=== PATIENT | female | born 1930 | race Caucasian/White ===

== ENCOUNTER 2018-08-09 19:50 | Emergency (ER) | END 2018-08-09 22:22 | disposition home or self-care (01) | DX: I48.91 Unspecified atrial fibrillation (principal); R60.9 Edema, unspecified; N28.9 Disorder of kidney and ureter, unspecified; I10 Essential (primary) hypertension; F17.200 Nicotine dependence, unspecified, uncomplicated; W19.XXXA Unspecified fall, initial encounter; Y93.89 Activity, other specified; Y92.89 Other specified places as the place of occurrence of the external cause; Y99.8 Other external cause status ==

== ENCOUNTER 2018-08-26 14:29 | Inpatient (IN) | payer MEDICARE, OTHER ==
[~2018-08-26] VITALS: Ht 172.7 cm; Wt 74.8 kg
[2018-08-26] MEDS ORDERED: HYDROMORPHONE 1 MG/1 ML DISP.SYRIN ONE ×2 (14:57→16:18)
[2018-08-26] MEDS ORDERED: ONDANSETRON 4 MG/2 ML VIAL ONE (14:57)
[2018-08-26] MEDS ORDERED: HYDROMORPHONE 1 MG/1 ML DISP.SYRIN IV ONE ×2 (15:00→16:15)
[2018-08-26] MEDS ORDERED: ONDANSETRON 4 MG/2 ML VIAL IV ONE (15:00)
[2018-08-26] MEDS ORDERED: CRANBERRY (15:01)
[2018-08-26] MEDS ORDERED: DONE5TAB7 PO (15:01)
[2018-08-26] MEDS ORDERED: ACET-2605 PO (15:01)
[2018-08-26] MEDS ORDERED: VITAMIN D3 PO (15:01)
[2018-08-26] MEDS ORDERED: GABA-532 PO (15:01)
[2018-08-26] MEDS ORDERED: AMLO5TAB9 PO (15:01)
[2018-08-26] MEDS ORDERED: VITAMIN B-12 PO (15:01)
[2018-08-26 15:32] LABS: BASOPHILS # (AUTO) 0.1 K/uL (0.0-8.0); BASOPHILS % (AUTO) 0.7 % (0.0-2.0); EOSINOPHILS # (AUTO) 0.1 K/uL (0.0-0.7); EOSINOPHILS % (AUTO) 0.8 % (0.0-7.0); HEMATOCRIT 45.3 % (31.2-41.9); HEMOGLOBIN 15.1 g/dL (10.9-14.3); LYMPHOCYTES # (AUTO) 1.5 K/uL (20.0-40.0); LYMPHOCYTES % (AUTO) 12.9 % (20.5-51.5); MEAN CORPUSCULAR HEMOGLOBIN 30.9 uug (24.7-32.8); MEAN CORPUSCULAR HGB CONC 33 g/dL (32.3-35.6); MEAN CORPUSCULAR VOLUME 92.8 fL (75.5-95.3); MONOCYTES # (AUTO) 0.7 K/uL (2.0-10.0); NEUTROPHILS # (AUTO) 9.6 K/uL (1.8-8.9); NEUTROPHILS % (AUTO) 79.6 % (38.5-71.5); PLATELET COUNT (AUTO) 444 K/uL (179-408); RED BLOOD CELL COUNT(AUTO) 4.89 MIL/uL (3.63-4.92)
[2018-08-26 15:41] LABS: CARBON DIOXIDE 25 mmol/L (21-32); CHLORIDE 103 mmol/L (98-107); CREATININE 1.7 mg/dL (0.6-1.3); GLUCOSE 125 mg/dL (74-106); UREA NITROGEN, BLOOD 23 mg/dL (7-18)
[2018-08-26] MEDS ORDERED: IV NORMAL SALINE 500 ML BAG IV ONE (16:15)
[2018-08-26 16:55] VITALS: BP 154/67
[2018-08-26] MEDS ORDERED: APIX2.5T PO (18:29)
[2018-08-26] MEDS ORDERED: ZOLPIDEM 5 MG TABLET PO PRN (18:45)
[2018-08-26] MEDS ORDERED: ACETAMINOPHEN 325 MG TABLET PO PRN (18:45)
[2018-08-26] MEDS ORDERED: Z GUARD REMEDY PASTE 57 GM TUBE TOP PRN (18:45)
[2018-08-26] MEDS ORDERED: ONDANSETRON 4 MG/2 ML VIAL IV PRN (18:45)
[2018-08-26] MEDS ORDERED: MAGNESIUM HYDROXIDE 30 ML LIQUID UDC PO PRN (18:45)
[2018-08-26] MEDS: IV NS 1000 ML 1,000 ML IV PRN (19:56)
[2018-08-26] MEDS: HYDROCODONE/APAP 5-325MG TABLET PO PRN (19:57)
[2018-08-26 20:01] VITALS: BP 128/56
[2018-08-26 23:44] LABS: *BILIRUBIN,URIN NEGATIVE (NEGATIVE); *BLOOD, URINE 1+ (NEGATIVE); *CLARITY,URINE CLOUDY (CLEAR); *COLOR,URINE YELLOW (YELLOW); *KETONES,URINE TRACE (NEGATIVE); *UROBILINOGEN,URINE 0.2 E.U./dl (NORMAL); LEUKOCYTE ESTERASE ,URINE 1+ (NEGATIVE); NITRITE, URINE POSITIVE (NEGATIVE); PH,URINE 5.5 (5.0-8.0); UGLUCOSE NEGATIVE (NEGATIVE)
[2018-08-26 23:56] LABS: BACTERIA,URINE MP /HPF (NONE SEEN); WBC,URINE 20-50 /HPF (0-3)
[2018-08-26 23:57] LABS: RED BLOOD CELL CASTS,URINE 0-3 /LPF (NONE SEEN); SQUAMOUS EPITHELIAL CELL,UR FEW /HPF (NONE SEEN); TRANSITIONAL EPI CELLS,URINE MODERATE /LPF (NONE SEEN)
[2018-08-27 05:23] VITALS: BP 150/76
[2018-08-27 05:49] LABS: BASOPHILS # (AUTO) 0.1 K/uL (0.0-8.0); BASOPHILS % (AUTO) 0.5 % (0.0-2.0); EOSINOPHILS % (AUTO) 0.1 % (0.0-7.0); HEMATOCRIT 39.2 % (31.2-41.9); HEMOGLOBIN 13.6 g/dL (10.9-14.3); LYMPHOCYTES # (AUTO) 1.6 K/uL (20.0-40.0); LYMPHOCYTES % (AUTO) 13.6 % (20.5-51.5); MEAN CORPUSCULAR HGB CONC 35 g/dL (32.3-35.6); MEAN CORPUSCULAR VOLUME 92.5 fL (75.5-95.3); MONOCYTES # (AUTO) 1.1 K/uL (2.0-10.0); MONOCYTES % (AUTO) 9.5 % (0.0-11.0); NEUTROPHILS # (AUTO) 8.9 K/uL (1.8-8.9); NEUTROPHILS % (AUTO) 76.3 % (38.5-71.5); PLATELET COUNT (AUTO) 335 K/uL (179-408); RED BLOOD CELL COUNT(AUTO) 4.24 MIL/uL (3.63-4.92); WHITE BLOOD COUNT (AUTO) 11.7 K/uL (3.8-11.8)
[2018-08-27 06:04] LABS: CARBON DIOXIDE 21 mmol/L (21-32); CHLORIDE 108 mmol/L (98-107); CHOLESTEROL 139 mg/dL (<200); CREATININE 1.5 mg/dL (0.6-1.3); GLUCOSE 114 mg/dL (74-106); HDL CHOLESTEROL 62 mg/dL (40-60); PHOSPHOROUS 4.3 mg/dL (2.5-4.9); POTASSIUM 4.9 mmol/L (3.5-5.1); TRIGLYCERIDES 52 MG/DL (30-150); UREA NITROGEN, BLOOD 21 mg/dL (7-18)
[2018-08-27] MEDS ORDERED: AMLODIPINE 5 MG TABLET PO SCH (09:00)
[2018-08-27] MEDS: GABAPENTIN 100 MG CAPSULE PO SCH ×3 (09:19→17:18)
[2018-08-27] MEDS: DONEPEZIL 5 MG TABLET PO SCH (09:19)
[2018-08-27] MEDS: CEFTRIAXONE 1 G in IV DEXTROSE 5% 50 ML IV SCH (10:37)
[2018-08-27 11:13] VITALS: BP 153/68
[2018-08-27] MEDS: HYDROCODONE/APAP 5-325MG TABLET PO PRN ×2 (13:51→18:38)
[2018-08-27] MEDS: IV NS 1000 ML 1,000 ML IV PRN (13:53)
[2018-08-27] MEDS ORDERED: MECL-102 PO (14:53)
[2018-08-27] MEDS ORDERED: VERA240C2 PO (14:53)
[2018-08-27 15:24] VITALS: BP 105/60
[2018-08-27] MEDS ORDERED: VERA180T11 PO (15:37)
[2018-08-27] MEDS: APIXABAN 2.5 MG PO SCH (17:18)
[2018-08-27 20:31] VITALS: BP 155/70
[2018-08-28 00:54] LABS: *BILIRUBIN,URIN NEGATIVE (NEGATIVE); *BLOOD, URINE Trace-intact (NEGATIVE); *CLARITY,URINE SLIGHTLY CLOUDY (CLEAR); *COLOR,URINE YELLOW (YELLOW); *KETONES,URINE NEGATIVE (NEGATIVE); *UROBILINOGEN,URINE 0.2 E.U./dl (NORMAL); LEUKOCYTE ESTERASE ,URINE 1+ (NEGATIVE); NITRITE, URINE POSITIVE (NEGATIVE); PH,URINE 5.5 (5.0-8.0); UGLUCOSE NEGATIVE (NEGATIVE)
[2018-08-28 01:14] LABS: BACTERIA,URINE MANY /HPF (NONE SEEN); SQUAMOUS EPITHELIAL CELL,UR MODERATE /HPF (NONE SEEN); WBC,URINE 20-50 /HPF (0-3)
[2018-08-28 01:15] LABS: MUCUS,URINE FEW /LPF (0-FEW); RENAL EPITHELIAL CELLS,URINE FEW /LPF (NONE SEEN); TRANSITIONAL EPI CELLS,URINE FEW /LPF (NONE SEEN)
[2018-08-28 01:16] LABS: *CREATININE,URINE 172.9 mg/dL (30-125); *URINE TOTAL PROTEIN RANDOM 45.3 mg/dL (<150/24HR)
[2018-08-28] MEDS: IV NS 1000 ML 1,000 ML IV PRN (01:32)
[2018-08-28 05:53] VITALS: BP 136/69
[2018-08-28 06:38] LABS: BASOPHILS # (AUTO) 0.1 K/uL (0.0-8.0); BASOPHILS % (AUTO) 0.4 % (0.0-2.0); EOSINOPHILS # (AUTO) 0.1 K/uL (0.0-0.7); EOSINOPHILS % (AUTO) 0.6 % (0.0-7.0); HEMATOCRIT 37.6 % (31.2-41.9); HEMOGLOBIN 12.9 g/dL (10.9-14.3); LYMPHOCYTES # (AUTO) 1.5 K/uL (20.0-40.0); LYMPHOCYTES % (AUTO) 11.7 % (20.5-51.5); MEAN CORPUSCULAR HGB CONC 34 g/dL (32.3-35.6); MEAN CORPUSCULAR VOLUME 93.1 fL (75.5-95.3); MONOCYTES # (AUTO) 1.1 K/uL (2.0-10.0); MONOCYTES % (AUTO) 8.3 % (0.0-11.0); NEUTROPHILS # (AUTO) 10.2 K/uL (1.8-8.9); PLATELET COUNT (AUTO) 367 K/uL (179-408); RED BLOOD CELL COUNT(AUTO) 4.04 MIL/uL (3.63-4.92); WHITE BLOOD COUNT (AUTO) 12.9 K/uL (3.8-11.8)
[2018-08-28 06:44] LABS: CARBON DIOXIDE 26 mmol/L (21-32); CHLORIDE 106 mmol/L (98-107); CREATININE 1.4 mg/dL (0.6-1.3); GLUCOSE 105 mg/dL (74-106); MAGNESIUM 1.7 mg/dL (1.8-2.4); PHOSPHOROUS 2.3 mg/dL (2.5-4.9); POTASSIUM 4.2 mmol/L (3.5-5.1); UREA NITROGEN, BLOOD 15 mg/dL (7-18)
[2018-08-28] MEDS: GABAPENTIN 100 MG CAPSULE PO SCH ×4 (08:52→16:00)
[2018-08-28] MEDS: DONEPEZIL 5 MG TABLET PO SCH (08:52)
[2018-08-28] MEDS: APIXABAN 2.5 MG PO SCH ×2 (08:54→16:01)
[2018-08-28] MEDS: HYDROCODONE/APAP 5-325MG TABLET PO PRN ×2 (08:55→15:59)
[2018-08-28] MEDS: VERAPAMIL SR 180 MG TABLET.SA PO SCH (08:55)
[2018-08-28] MEDS ORDERED: NEUTRA PHOS PACKET PO ONE (11:00)
[2018-08-28 11:03] VITALS: BP 150/64
[2018-08-28] MEDS: CEFTRIAXONE 1 G in IV DEXTROSE 5% 50 ML IV SCH (11:51)
[2018-08-28] MEDS: MAGNESIUM SULFATE/D5W 100 ML IV SCH ×2 (13:15→14:24)
[2018-08-28] MEDS ORDERED: PIPERACILLIN/TAZOBACTAM/D5W 3.375 G in PREMIXED 1 EACH IV SCH (14:00)
[2018-08-28] MEDS: PIPERACILLIN/TAZOBACTAM/D5W 3.375 G in PREMIXED 1 EACH IV SCH ×2 (15:59→21:13)
[2018-08-28 20:03] VITALS: BP 135/84
[2018-08-29] MEDS: MECLIZINE HCL 25 MG TABLET PO PRN (03:52)
[2018-08-29] MEDS: PIPERACILLIN/TAZOBACTAM/D5W 3.375 G in PREMIXED 1 EACH IV SCH ×3 (05:01→21:03)
[2018-08-29 05:13] VITALS: BP 111/75
[2018-08-29] MEDS: DONEPEZIL 5 MG TABLET PO SCH (08:51)
[2018-08-29] MEDS: HYDROCODONE/APAP 5-325MG TABLET PO PRN ×2 (08:52→17:10)
[2018-08-29] MEDS: GABAPENTIN 100 MG CAPSULE PO SCH ×3 (08:52→17:10)
[2018-08-29] MEDS: VERAPAMIL SR 180 MG TABLET.SA PO SCH (08:52)
[2018-08-29] MEDS: APIXABAN 2.5 MG PO SCH ×3 (08:53→17:11)
[2018-08-29 11:23] VITALS: BP 144/43
[2018-08-29 11:27] LABS: BASOPHILS # (AUTO) 0.1 K/uL (0.0-8.0); BASOPHILS % (AUTO) 0.6 % (0.0-2.0); EOSINOPHILS # (AUTO) 0.1 K/uL (0.0-0.7); EOSINOPHILS % (AUTO) 0.7 % (0.0-7.0); LYMPHOCYTES # (AUTO) 1.4 K/uL (20.0-40.0); MEAN CORPUSCULAR HEMOGLOBIN 31.7 uug (24.7-32.8); MEAN CORPUSCULAR HGB CONC 35 g/dL (32.3-35.6); MEAN CORPUSCULAR VOLUME 91.3 fL (75.5-95.3); MONOCYTES # (AUTO) 1.2 K/uL (2.0-10.0); MONOCYTES % (AUTO) 7.9 % (0.0-11.0); NEUTROPHILS # (AUTO) 12.9 K/uL (1.8-8.9); NEUTROPHILS % (AUTO) 81.8 % (38.5-71.5); PLATELET COUNT (AUTO) 444 K/uL (179-408); RED BLOOD CELL COUNT(AUTO) 4.57 MIL/uL (3.63-4.92); WHITE BLOOD COUNT (AUTO) 15.7 K/uL (3.8-11.8)
[2018-08-29 11:37] LABS: HEMATOCRIT 41.7 % (31.2-41.9); HEMOGLOBIN 14.5 g/dL (10.9-14.3)
[2018-08-29 11:38] LABS: ALANINE AMINOTRANSFERASE 112 U/L (14-59); ALKALINE PHOSPHATASE 92 U/L (50-136); ASPARTATE AMINOTRANSFERASE 32 U/L (15-37); BILIRUBIN,TOTAL 0.9 mg/dL (0.2-1.0); CARBON DIOXIDE 26 mmol/L (21-32); CHLORIDE 104 mmol/L (98-107); CREATININE 1.5 mg/dL (0.6-1.3); GLUCOSE 106 mg/dL (74-106); MAGNESIUM 2.1 mg/dL (1.8-2.4); PHOSPHOROUS 2.8 mg/dL (2.5-4.9); POTASSIUM 3.9 mmol/L (3.5-5.1); TOTAL PROTEIN, SERUM 6.9 g/dL (6.4-8.2); UREA NITROGEN, BLOOD 17 mg/dL (7-18)
[2018-08-29] MEDS ORDERED: CIPROFLOXACIN-HC OTIC DROP 10 ML BOTTLE LEFT EAR SCH (12:45)
[2018-08-29] MEDS ORDERED: NEOMY/POLYMYX B/HC OTIC SUSP 10 ML BOTTLE OT SCH (14:21)
[2018-08-29 14:54] VITALS: BP 121/67
[2018-08-29] MEDS: NEOMY/POLYMYX B/HC OTIC SUSP 10 ML BOTTLE LEFT EAR SCH ×2 (17:09→20:37)
[2018-08-29 20:35] VITALS: BP 123/64
[2018-08-30 00:05] VITALS: BP 125/62
[2018-08-30] MEDS: HYDROCODONE/APAP 5-325MG TABLET PO PRN ×4 (02:28→22:23)
[2018-08-30] MEDS: PIPERACILLIN/TAZOBACTAM/D5W 3.375 G in PREMIXED 1 EACH IV SCH (05:09)
[2018-08-30 05:55] VITALS: BP 133/66
[2018-08-30 05:56] VITALS: BP 133/66
[2018-08-30 07:51] LABS: BASOPHILS # (AUTO) 0.1 K/uL (0.0-8.0); BASOPHILS % (AUTO) 1.4 % (0.0-2.0); EOSINOPHILS # (AUTO) 0.3 K/uL (0.0-0.7); EOSINOPHILS % (AUTO) 3.2 % (0.0-7.0); HEMATOCRIT 39.4 % (31.2-41.9); HEMOGLOBIN 13.6 g/dL (10.9-14.3); LYMPHOCYTES # (AUTO) 2.4 K/uL (20.0-40.0); LYMPHOCYTES % (AUTO) 22.3 % (20.5-51.5); MEAN CORPUSCULAR HEMOGLOBIN 31.9 uug (24.7-32.8); MEAN CORPUSCULAR HGB CONC 35 g/dL (32.3-35.6); MEAN CORPUSCULAR VOLUME 92.7 fL (75.5-95.3); MONOCYTES % (AUTO) 9.5 % (0.0-11.0); NEUTROPHILS # (AUTO) 6.8 K/uL (1.8-8.9); NEUTROPHILS % (AUTO) 63.6 % (38.5-71.5); PLATELET COUNT (AUTO) 421 K/uL (179-408); RED BLOOD CELL COUNT(AUTO) 4.25 MIL/uL (3.63-4.92); WHITE BLOOD COUNT (AUTO) 10.7 K/uL (3.8-11.8)
[2018-08-30 08:00] LABS: ALANINE AMINOTRANSFERASE 101 U/L (14-59); ALKALINE PHOSPHATASE 90 U/L (50-136); ASPARTATE AMINOTRANSFERASE 31 U/L (15-37); BILIRUBIN,TOTAL 0.9 mg/dL (0.2-1.0); CARBON DIOXIDE 28 mmol/L (21-32); CHLORIDE 106 mmol/L (98-107); CREATININE 1.6 mg/dL (0.6-1.3); GLUCOSE 90 mg/dL (74-106); MAGNESIUM 2.1 mg/dL (1.8-2.4); PHOSPHOROUS 3.5 mg/dL (2.5-4.9); POTASSIUM 3.8 mmol/L (3.5-5.1); TOTAL PROTEIN, SERUM 6.4 g/dL (6.4-8.2); UREA NITROGEN, BLOOD 22 mg/dL (7-18)
[2018-08-30] MEDS ORDERED: LEVOFLOXACIN 500 MG TABLET PO SCH (09:00)
[2018-08-30] MEDS ORDERED: LEVOFLOXACIN 500 MG TABLET PO ONE (09:00)
[2018-08-30] MEDS: GABAPENTIN 100 MG CAPSULE PO SCH ×3 (09:11→17:00)
[2018-08-30] MEDS: DONEPEZIL 5 MG TABLET PO SCH (09:11)
[2018-08-30] MEDS: VERAPAMIL SR 180 MG TABLET.SA PO SCH (09:13)
[2018-08-30] MEDS: NEOMY/POLYMYX B/HC OTIC SUSP 10 ML BOTTLE LEFT EAR SCH ×4 (09:15→20:21)
[2018-08-30] MEDS: APIXABAN 2.5 MG PO SCH ×2 (09:28→17:00)
[2018-08-30] MEDS: MECLIZINE HCL 25 MG TABLET PO PRN (10:56)
[2018-08-30 12:30] VITALS: BP 128/56
[2018-08-30 16:00] VITALS: BP 138/79
[2018-08-30 20:01] VITALS: BP 114/59
[2018-08-30] MEDS ORDERED: DOCUSATE SODIUM 100 MG CAPSULE PO SCH (21:00)
[2018-08-31 04:00] VITALS: BP 128/58
[2018-08-31] MEDS: HYDROCODONE/APAP 5-325MG TABLET PO PRN ×3 (06:18→17:46)
[2018-08-31 07:09] LABS: BASOPHILS # (AUTO) 0.1 K/uL (0.0-8.0); EOSINOPHILS # (AUTO) 0.4 K/uL (0.0-0.7); EOSINOPHILS % (AUTO) 3.5 % (0.0-7.0); HEMATOCRIT 37.9 % (31.2-41.9); HEMOGLOBIN 13.4 g/dL (10.9-14.3); LYMPHOCYTES # (AUTO) 2.3 K/uL (20.0-40.0); LYMPHOCYTES % (AUTO) 21.1 % (20.5-51.5); MEAN CORPUSCULAR HEMOGLOBIN 32.3 uug (24.7-32.8); MEAN CORPUSCULAR HGB CONC 35 g/dL (32.3-35.6); MEAN CORPUSCULAR VOLUME 91.5 fL (75.5-95.3); MONOCYTES # (AUTO) 0.9 K/uL (2.0-10.0); MONOCYTES % (AUTO) 8.7 % (0.0-11.0); NEUTROPHILS # (AUTO) 7.1 K/uL (1.8-8.9); NEUTROPHILS % (AUTO) 65.7 % (38.5-71.5); PLATELET COUNT (AUTO) 453 K/uL (179-408); RED BLOOD CELL COUNT(AUTO) 4.15 MIL/uL (3.63-4.92); WHITE BLOOD COUNT (AUTO) 10.9 K/uL (3.8-11.8)
[2018-08-31 07:19] LABS: CARBON DIOXIDE 28 mmol/L (21-32); CHLORIDE 104 mmol/L (98-107); CREATININE 1.6 mg/dL (0.6-1.3); GLUCOSE 83 mg/dL (74-106); MAGNESIUM 2.1 mg/dL (1.8-2.4); PHOSPHOROUS 3.8 mg/dL (2.5-4.9); POTASSIUM 3.8 mmol/L (3.5-5.1); UREA NITROGEN, BLOOD 27 mg/dL (7-18)
[2018-08-31 07:47] LABS: THYROID STIMULATING HORMONE 3.046 mIU/mL (0.358-3.740)
[2018-08-31] MEDS ORDERED: LEVOFLOXACIN 250 MG TABLET PO SCH (09:00)
[2018-08-31] MEDS: VERAPAMIL SR 180 MG TABLET.SA PO SCH (09:07)
[2018-08-31] MEDS: DONEPEZIL 5 MG TABLET PO SCH (09:07)
[2018-08-31] MEDS: GABAPENTIN 100 MG CAPSULE PO SCH ×3 (09:07→16:21)
[2018-08-31] MEDS: NEOMY/POLYMYX B/HC OTIC SUSP 10 ML BOTTLE LEFT EAR SCH ×3 (09:08→16:22)
[2018-08-31] MEDS: APIXABAN 2.5 MG PO SCH ×2 (09:12→16:22)
[2018-08-31 12:00] VITALS: BP 133/64
[2018-08-31 16:13] VITALS: BP 113/59
[2018-08-31] MEDS ORDERED: HYDR-3326 PO (16:32)
[2018-08-31] MEDS ORDERED: GABA-532 PO (16:32)
[2018-08-31] MEDS ORDERED: ACET325T53 PO (16:32)
[2018-08-31] MEDS ORDERED: CHOL100043 PO (16:32)
[2018-08-31] MEDS ORDERED: DONE5TAB7 PO (16:32)
[2018-08-31] MEDS ORDERED: MENT71OI TOP (16:32)
[2018-08-31] MEDS ORDERED: ZOLP5TAB8 PO (16:32)
[2018-08-31] MEDS ORDERED: DOCU100C36 PO (16:32)
[2018-08-31] MEDS ORDERED: NEOM10DR11 LEFT EAR (16:32)
[2018-08-31] MEDS ORDERED: Levofloxacin PO (16:32)
== END 2018-08-31 18:35 | DRG 542 ==
LOC: ER 14:29 → MED 16:17
PROVIDERS: ADMIT Nurse Practitioner Acute Care; ATTEND Nurse Practitioner Acute Care
DX: M80.821A Other osteoporosis with current pathological fracture, right humerus, initial encounter for fracture (principal); G93.41 Metabolic encephalopathy; N17.0 Acute kidney failure with tubular necrosis; E43 Unspecified severe protein-calorie malnutrition; N39.0 Urinary tract infection, site not specified; L03.119 Cellulitis of unspecified part of limb; D68.59 Other primary thrombophilia; E87.2 Acidosis; W18.30XA Fall on same level, unspecified, initial encounter; Y92.59 Other trade areas as the place of occurrence of the external cause; B96.20 Unspecified Escherichia coli [E. coli] as the cause of diseases classified elsewhere; B96.5 Pseudomonas (aeruginosa) (mallei) (pseudomallei) as the cause of diseases classified elsewhere; Z16.11 Resistance to penicillins; H65.91 Unspecified nonsuppurative otitis media, right ear; R29.6 Repeated falls; Z86.711 Personal history of pulmonary embolism; Z79.01 Long term (current) use of anticoagulants; Z74.09 Other reduced mobility; I12.9 Hypertensive chronic kidney disease with stage 1 through stage 4 chronic kidney disease, or unspecified chronic kidney disease; N18.2 Chronic kidney disease, stage 2 (mild); G30.9 Alzheimer's disease, unspecified; F02.80 Dementia in other diseases classified elsewhere, unspecified severity, without behavioral disturbance, psychotic disturbance, mood disturbance, and anxiety; G31.9 Degenerative disease of nervous system, unspecified; H70.93 Unspecified mastoiditis, bilateral; M89.9 Disorder of bone, unspecified; E83.42 Hypomagnesemia; E66.9 Obesity, unspecified; Z68.25 Body mass index [BMI] 25.0-25.9, adult; Z91.19 Patient's noncompliance with other medical treatment and regimen; R42 Dizziness and giddiness
CPT/HCPCS: 36415; 51798; 70030-TC; 70450; 71045; 73030; 76770; 83735; 84100; 84156; 84300; 84443; 85025; 87077; 87086; 93005; 97110; 97116; 97530; A4663; C1758; G0378; J0696; J1170; J2405; J2543; J3475; J7030; J7040; J7060; J8597

== ENCOUNTER 2018-08-31 12:43 | Inpatient (IN) | payer MEDICARE ==
[~2018-08-31] VITALS: Ht 172.7 cm; Wt 74.8 kg
[~2018-08-31 12:43] MED LIST: ACET-2605 PO; APIX2.5T PO; CRANBERRY; DONE5TAB7 PO; GABA-532 PO; MECL-102 PO; VERA180T11 PO; VITAMIN B-12 PO; VITAMIN D3 PO
[2018-08-31] MEDS ORDERED: CHOL100043 PO (16:32)
[2018-08-31] MEDS ORDERED: MENT71OI TOP (16:32)
[2018-08-31] MEDS ORDERED: NEOM10DR11 LEFT EAR (16:32)
[2018-08-31] MEDS ORDERED: DONE5TAB7 PO (16:32)
[2018-08-31] MEDS ORDERED: GABA-532 PO (16:32)
[2018-08-31] MEDS ORDERED: Levofloxacin PO (16:32)
[2018-08-31] MEDS ORDERED: ZOLP5TAB8 PO (16:32)
[2018-08-31] MEDS ORDERED: HYDR-3326 PO (16:32)
[2018-08-31] MEDS ORDERED: DOCU100C36 PO (16:32)
[2018-08-31] MEDS ORDERED: ACET325T53 PO (16:32)
[2018-08-31 20:00] VITALS: BP 129/69
--- NOTE | 2018-08-31 20:50 | NUR ---
According to the day shift nurse, patient is [id number] female, admitted from Med- Surg @1845 via wheelchair. Admitting diagnosis: UTI, Right humeral fracture. AAO x3. Condition fair. VSS. No acute distress or SOB noted. Medication reconciliation done, Contacted Dr. Cope for medication reconciliation. Dr. Odom was informed about the admission. Patient assessed. All safety measures maintained. Fall prevention observed. patient educated for using the call light. Bed in low position, brake and alarm on, side rails up x3. Call light and personal belongings within reach. Continue to monitor.
[2018-08-31] MEDS ORDERED: LEVOFLOXACIN 250 MG PO SCH (21:00)
[2018-08-31] MEDS ORDERED: ZOLPIDEM 5 MG TABLET PO PRN (21:00)
[2018-08-31] MEDS ORDERED: NEOMY/POLYMYX B/HC OTIC SUSP 10 ML BOTTLE LEFT EAR SCH (21:00)
[2018-08-31] MEDS ORDERED: CALMOSEPTINE 113 GM OINTMENT TOP PRN (21:00)
[2018-08-31] MEDS ORDERED: ACETAMINOPHEN 325 MG TABLET PO PRN (21:00)
[2018-08-31] MEDS: DOCUSATE SODIUM 100 MG CAPSULE PO SCH (21:22)
[2018-08-31] MEDS: HYDROCODONE/APAP 5-325MG TABLET PO PRN (21:23)
[2018-08-31] MEDS ORDERED: Z GUARD REMEDY PASTE 57 GM TUBE TOP PRN (22:00)
[2018-09-01 06:54] VITALS: BP 148/68
--- NOTE | 2018-09-01 06:59 | NUR ---
End of the shift note Patient was stable throughout the shift and had a good sleep last night. No sign of acute distress or SOB noted. Complained of shoulder pain, rated 8/10, Narco 5-325 given. Medications given as ordered and well tolerated. All admission works done. Keep her clean and dry. Safety measures maintained. All needs anticipated promptly. Fall precaution maintained. Bed in low position, brake and alarm on, side rails up x3. DVT Pump placed. IV line on left forearm, no sign of inflammation. Call light and personal belongings within reach. Continue to monitor and will endorse to the day shift nurse accordingly.
--- NOTE | 2018-09-01 07:49 | NUR ---
Patient noted resting in bed with eyes closed, complaints of right shoulder pain, PRN [place] given for pain 01/23, no signs of distress noted, call light in reach, bed locked an din lowest position, patient assisted with bed hernández at this time, all needs met
[2018-09-01] MEDS: CHOLECALCIFEROL 1,000 UNIT TABLET PO SCH (08:53)
[2018-09-01] MEDS: GABAPENTIN 100 MG CAPSULE PO SCH ×3 (08:53→16:38)
[2018-09-01] MEDS: CYANOCOBALAMIN 1,000 MCG TABLET PO SCH (08:53)
[2018-09-01] MEDS: DONEPEZIL 10 MG TABLET PO SCH (08:53)
[2018-09-01] MEDS: VERAPAMIL SR 180 MG TABLET.SA PO SCH (08:54)
[2018-09-01] MEDS: HYDROCODONE/APAP 5-325MG TABLET PO PRN ×3 (08:54→22:18)
[2018-09-01 09:00] VITALS: BP 167/76
[2018-09-01] MEDS ORDERED: APIXABAN 5 MG TABLET PO ONE (09:00)
[2018-09-01] MEDS ORDERED: DONEPEZIL 5 MG TABLET PO SCH (09:00)
[2018-09-01] MEDS: APIXABAN 2.5 MG PO SCH ×2 (09:52→16:37)
[2018-09-01] MEDS: LEVOFLOXACIN 250 MG TABLET PO SCH (11:34)
[2018-09-01] MEDS: NEOMY/POLYMYX B/HC OTIC SUSP 10 ML BOTTLE LEFT EAR SCH ×4 (11:35→21:04)
[2018-09-01] MEDS ORDERED: Medication Not On Formulary EA (Apixaban (Eliquis) 2.5 MG) PO SCH (17:00)
[2018-09-01 18:09] VITALS: BP 120/62
--- NOTE | 2018-09-01 19:00 | NUR ---
Received patient awake, in bed with HOB elevated. Denies any pain/discomforts at this time. Right arm sling in used. No circulation impairment noted. Good capillary. Safety measure and fall precaution maintained. SCD pump off at this time per patient request. Continue care as planned.
[2018-09-01 20:57] VITALS: BP 123/61
[2018-09-01] MEDS: DOCUSATE SODIUM 100 MG CAPSULE PO SCH (21:04)
[2018-09-01 21:44] VITALS: BP 123/61
--- NOTE | 2018-09-01 22:20 | NUR ---
Presented complaint of right shoulder pain, [place] 1 tab given as needed and as ordered. Will monitor therapeutic effect.
--- NOTE | 2018-09-01 23:20 | NUR ---
Sleeping soundly at this time. Pain medication effective.
[2018-09-02 05:02] VITALS: BP 151/69
--- NOTE | 2018-09-02 06:05 | NUR ---
Shift End Report: VS WNL. Slept good. Medicated once for right shoulder pain with relief. No further complaint presented. No fall/injury. All needs attended and met. No significant event reported all night. Continue current rehab plan of care.
[2018-09-02] MEDS: DONEPEZIL 10 MG TABLET PO SCH (08:37)
[2018-09-02] MEDS: CYANOCOBALAMIN 1,000 MCG TABLET PO SCH (08:37)
[2018-09-02] MEDS: GABAPENTIN 100 MG CAPSULE PO SCH ×3 (08:37→17:18)
[2018-09-02] MEDS: CHOLECALCIFEROL 1,000 UNIT TABLET PO SCH (08:37)
[2018-09-02] MEDS: LEVOFLOXACIN 250 MG TABLET PO SCH (08:37)
[2018-09-02] MEDS: NEOMY/POLYMYX B/HC OTIC SUSP 10 ML BOTTLE LEFT EAR SCH ×4 (08:38→20:29)
[2018-09-02] MEDS: VERAPAMIL SR 180 MG TABLET.SA PO SCH (08:41)
[2018-09-02] MEDS: HYDROCODONE/APAP 5-325MG TABLET PO PRN ×2 (08:41→20:32)
[2018-09-02] MEDS: APIXABAN 2.5 MG PO SCH ×2 (08:54→17:20)
--- NOTE | 2018-09-02 09:30 | NUR ---
Patient awake, alert, finished breakfast and tolerated well, not in any form of acute distress. Patient complained of pain on the right shoulder, gave PRN pain medication as ordered. All due medications given and tolerated well. Assisted patient to the bedside commode then PT took her for therapeutic exercises in the rehab gym.
[2018-09-02 09:53] VITALS: BP 154/63
--- NOTE | 2018-09-02 13:45 | NUR ---
INTERDISCIPLINARY TEAM CONFERENCE
--- NOTE | 2018-09-02 13:59 | NUR ---
WOUND CARE CONSULT: PT PRESENTS WITH DRY ABRASION TO RT KNEE AND PINK HEALED AREAS TO RT AND LEFT WAIST AREAS, PRESENT ON ADMISSION. RECOMMENDATIONS MADE FOR SKIN PROTECTION AND DISCUSSED WITH NURSING STAFF. RT ARM SLING NOTED. WILL SEE PRN. CURRENT BART SCORE IS 16. MD IN AGREEMENT WITH PLAN OF CARE. Addendum: 09/02/18 at 1400 by ADRIEN GUERRA RN Amended: Links added.
[2018-09-02 16:07] VITALS: BP 143/69
--- NOTE | 2018-09-02 19:00 | NUR ---
Received patient awake, sitting in a bedside commode, stating she had one BM and wants to see how big it is. Good skin/theodore care rendered, tolerated well. Dr. Lawsong in to see patient. No new order noted. Safety measure and fall precaution maintained. Continue care as planned.
[2018-09-02 19:30] VITALS: BP 144/67
[2018-09-02] MEDS: DOCUSATE SODIUM 100 MG CAPSULE PO SCH (20:29)
--- NOTE | 2018-09-02 20:35 | NUR ---
[place] 1 tab given as needed and ordered for complaint of right hip pain. Will monitor.
--- NOTE | 2018-09-03 05:35 | NUR ---
Shift End Report: Slept well. Medicated once for pain with relief. No further complaint presented. No fall/injury. Had one large BM in our shift. No significant event reported all night. Continue current rehab plan of care.
[2018-09-03 06:25] VITALS: BP 147/66
[2018-09-03 08:00] VITALS: BP 142/67
[2018-09-03] MEDS: CYANOCOBALAMIN 1,000 MCG TABLET PO SCH (08:37)
[2018-09-03] MEDS: CHOLECALCIFEROL 1,000 UNIT TABLET PO SCH (08:38)
[2018-09-03] MEDS: VERAPAMIL SR 180 MG TABLET.SA PO SCH (08:38)
[2018-09-03] MEDS: LEVOFLOXACIN 250 MG TABLET PO SCH (08:38)
[2018-09-03] MEDS: GABAPENTIN 100 MG CAPSULE PO SCH ×3 (08:38→17:03)
[2018-09-03] MEDS: APIXABAN 2.5 MG PO SCH ×2 (08:41→17:07)
[2018-09-03] MEDS: NEOMY/POLYMYX B/HC OTIC SUSP 10 ML BOTTLE LEFT EAR SCH (08:42)
[2018-09-03] MEDS: HYDROCODONE/APAP 5-325MG TABLET PO PRN (08:48)
--- NOTE | 2018-09-03 11:58 | NUR ---
Received patient alert and oriented in stable condition. Continue pain management prior to therapy for ADL activity with good effect. not in distress. Refuse left ear drops for infection. verbalize not needed anymore. MD Cope notified. ordered discontinue medicine. Continue on right shoulder sling. tolerated well. will continue monitor
--- NOTE | 2018-09-03 12:12 | NUR ---
EKG result relayed to Anatoliy with no new order.
[2018-09-03 16:13] VITALS: BP 143/66
--- NOTE | 2018-09-03 19:50 | NUR ---
Patient received in bed. AAO x3. Able to make needs known. No sign of acute distress or SOB was noted. On room air. No Complain of pain at this time. her right shoulder in sling. Patient assessed. Safety measures maintained. Fall prevention observed. Bed in low position, brake and alarm on, side rails up x2. Call light and personal belongings within reach. Will continue to monitor.
[2018-09-03 20:00] VITALS: BP 149/79
[2018-09-03] MEDS: DOCUSATE SODIUM 100 MG CAPSULE PO SCH (21:16)
--- NOTE | 2018-09-04 05:48 | NUR ---
End of the shift note Patient was stable throughout the shift and had a good sleep last night. No sign of acute distress or SOB noted. No Complain of pain. Medications given as ordered and well tolerated. Diaper changed. Keep her clean and dry. Safety measures maintained. All needs anticipated promptly. Fall precaution maintained. Bed in low position, brake and alarm on, side rails up x3. DVT Pump placed. Call light and personal belongings within reach. Continue to monitor and will endorse to the day shift nurse accordingly.
[2018-09-04 06:06] VITALS: BP 131/68
--- NOTE | 2018-09-04 08:00 | NUR ---
Received pt. sleeping, on/off. Had to be awake for breakfast, compliant with medication regimen. SBP within desire limits. will continue to monitor. Pt. argumentative and at times refusing to take morning medications, stating "this medications are only making me feel seeker", and when about to leave room pt. agreeing to take them. Stating "just leave me alone you guys keep me awake". Will continue with plan of care.
[2018-09-04 08:05] VITALS: BP 142/58
[2018-09-04] MEDS: hydrALAZINE HCL 25 MG TABLET PO SCH ×2 (08:29→20:35)
[2018-09-04] MEDS: VERAPAMIL SR 180 MG TABLET.SA PO SCH (08:30)
[2018-09-04] MEDS: CHOLECALCIFEROL 1,000 UNIT TABLET PO SCH (08:30)
[2018-09-04] MEDS: CYANOCOBALAMIN 1,000 MCG TABLET PO SCH (08:30)
[2018-09-04] MEDS: LEVOFLOXACIN 250 MG TABLET PO SCH (08:30)
[2018-09-04] MEDS: GABAPENTIN 100 MG CAPSULE PO SCH ×3 (08:30→17:08)
[2018-09-04] MEDS: APIXABAN 2.5 MG PO SCH ×2 (08:33→17:08)
--- NOTE | 2018-09-04 17:29 | NUR ---
EOSS: left pt. resting comfortably, slept a total of 7.5 H. through out the shift awake only for meal and medications administration. vitals signs stable, no c/of pain or any other discomfort. On room air saturation within desired limits. Safety precautions implemented at all times. Tolerated PT activity fairly as reported. Adequate I&O. No new skin breakdown noted. PT. visited by daughter who verbalized concerns about pt been seen by and ENT service but as stated "issued discussed with attending physician in the past few days".
[2018-09-04 19:49] VITALS: BP 122/57
[2018-09-04] MEDS: DOCUSATE SODIUM 100 MG CAPSULE PO SCH (20:34)
[2018-09-05 05:52] VITALS: BP 138/68
--- NOTE | 2018-09-05 06:47 | NUR ---
pt alert, oriented, remains in bed, slept 8 hrs overnight, watching tv at times, pt stated she got work-up really hard with therapy, refused any pain meds . feeling nauseated but no vomiting ,had some saltine and with mild relief and slept through, incontinent of urine , had bm yesterday. vss,afebrile. will continue to monitor, call light at reached and bed alarm activate.
[2018-09-05 07:29] LABS: ALANINE AMINOTRANSFERASE 33 U/L (14-59); ALKALINE PHOSPHATASE 91 U/L (50-136); ASPARTATE AMINOTRANSFERASE 14 U/L (15-37); BILIRUBIN,TOTAL 0.6 mg/dL (0.2-1.0); CARBON DIOXIDE 29 mmol/L (21-32); CHLORIDE 107 mmol/L (98-107); CREATININE 1.4 mg/dL (0.6-1.3); GLUCOSE 89 mg/dL (74-106); PHOSPHOROUS 3.5 mg/dL (2.5-4.9); TOTAL PROTEIN, SERUM 6.4 g/dL (6.4-8.2); UREA NITROGEN, BLOOD 23 mg/dL (7-18)
[2018-09-05 08:09] VITALS: BP 144/66
[2018-09-05 08:45] LABS: BASOPHILS # (AUTO) 0.1 K/uL (0.0-8.0); BASOPHILS % (AUTO) 0.9 % (0.0-2.0); EOSINOPHILS # (AUTO) 0.3 K/uL (0.0-0.7); EOSINOPHILS % (AUTO) 2.7 % (0.0-7.0); HEMATOCRIT 38.1 % (31.2-41.9); HEMOGLOBIN 13.3 g/dL (10.9-14.3); LYMPHOCYTES % (AUTO) 20.4 % (20.5-51.5); MEAN CORPUSCULAR HEMOGLOBIN 32.4 uug (24.7-32.8); MEAN CORPUSCULAR HGB CONC 35 g/dL (32.3-35.6); MEAN CORPUSCULAR VOLUME 93.3 fL (75.5-95.3); MONOCYTES # (AUTO) 0.9 K/uL (2.0-10.0); MONOCYTES % (AUTO) 9.1 % (0.0-11.0); NEUTROPHILS # (AUTO) 6.6 K/uL (1.8-8.9); NEUTROPHILS % (AUTO) 66.9 % (38.5-71.5); PLATELET COUNT (AUTO) 505 K/uL (179-408); RED BLOOD CELL COUNT(AUTO) 4.09 MIL/uL (3.63-4.92); WHITE BLOOD COUNT (AUTO) 9.8 K/uL (3.8-11.8)
[2018-09-05] MEDS: hydrALAZINE HCL 25 MG TABLET PO SCH ×2 (09:11→20:29)
[2018-09-05] MEDS: CHOLECALCIFEROL 1,000 UNIT TABLET PO SCH (09:11)
[2018-09-05] MEDS: CYANOCOBALAMIN 1,000 MCG TABLET PO SCH (09:11)
[2018-09-05] MEDS: GABAPENTIN 100 MG CAPSULE PO SCH ×3 (09:11→17:48)
[2018-09-05] MEDS: VERAPAMIL SR 180 MG TABLET.SA PO SCH (09:12)
[2018-09-05] MEDS: APIXABAN 2.5 MG PO SCH ×2 (09:16→17:54)
--- NOTE | 2018-09-05 10:29 | NUR ---
Received patient awake in stable condition. Complaint of discomfort on site of blood drawn. Applied ice pack. Continue therapy for ambulation and ADL ability. Complaint of dizziness. will continue monitor
[2018-09-05] MEDS: HYDROCODONE/APAP 5-325MG TABLET PO PRN (13:45)
[2018-09-05 16:26] VITALS: BP 151/61
--- NOTE | 2018-09-05 18:46 | NUR ---
Patient went outside ENT consult around 130pm via private car and came back around 330pm in stable condition with new order flonase nasal spray. referred patient to neurology. MD Odom and MD Cope aware. will endorse
--- NOTE | 2018-09-05 19:33 | NUR ---
MD Ramirez (neuro)made aware. He agree to visit patient tomorrow regarding dizziness.
--- NOTE | 2018-09-05 19:40 | NUR ---
Patient received in bed. AAO x3. Able to make needs known. No sign of acute distress or SOB was noted. On room air. Complain of pain on right shoulder rating 5/10. Right shoulder in sling. Patient assessed. Safety measures maintained. Fall prevention observed. Bed in low position, brake and alarm on, side rails up x2 for safety. Call light and personal belongings within reach. Will continue to monitor.
[2018-09-05 20:02] VITALS: BP 136/60
[2018-09-05] MEDS: DOCUSATE SODIUM 100 MG CAPSULE PO SCH (20:28)
[2018-09-05] MEDS: FLUTICASONE PROP NASAL SPRAY 16 GM BOTTLE NS SCH (20:29)
[2018-09-05] MEDS ORDERED: FLUTICASONE PROP NASAL SPRAY 16 GM BOTTLE NS ONE (21:00)
--- NOTE | 2018-09-05 21:45 | NUR ---
Patient temperature was sub normal: 94.1 orally. Covered patient with warm blanket. JENNIFER Vang was aware, ordered Mary Lou Veloz. Operated Mary Lou Veloz. Will continue monitoring. Addendum: 09/06/18 at 0443 by PHOEBE VINSON RN Just discard the notes. Notes on wrong patient.
[2018-09-06 06:23] VITALS: BP 123/69
--- NOTE | 2018-09-06 06:34 | NUR ---
End of the shift note Patient was stable throughout the shift and had a good sleep last night except for the middle of the night that she got hallucinated and confused. No sign of acute distress or SOB noted. No Complain of pain. Medications given as ordered and well tolerated. Diaper changed. Keep her clean and dry. Safety measures maintained. All needs anticipated promptly. Fall precaution maintained. Bed in low position, brake and alarm on, side rails up x3. DVT Pump placed. Call light and personal belongings within reach. Continue to monitor and will endorse to the day shift nurse accordingly.
[2018-09-06 07:00] VITALS: BP 160/63
[2018-09-06] MEDS ORDERED: FLUTICASONE PROP NASAL SPRAY 16 GM BOTTLE NS SCH (09:00)
--- NOTE | 2018-09-06 09:00 | NUR ---
Received patient, awake, alert x3-4. Not in any form of distress. With tolerable pain over right shoulder. Right shoulder sling intact and in place. Will continue to monitor, encouraged to call for needs.
[2018-09-06] MEDS: GABAPENTIN 100 MG CAPSULE PO SCH ×3 (09:04→17:42)
[2018-09-06] MEDS: DONEPEZIL 10 MG TABLET PO SCH (09:04)
[2018-09-06] MEDS: FLUTICASONE PROP NASAL SPRAY 16 GM BOTTLE NS SCH (09:04)
[2018-09-06] MEDS: CHOLECALCIFEROL 1,000 UNIT TABLET PO SCH (09:04)
[2018-09-06] MEDS: APIXABAN 2.5 MG PO SCH ×2 (09:05→17:42)
[2018-09-06] MEDS: hydrALAZINE HCL 25 MG TABLET PO SCH ×2 (09:05→21:07)
[2018-09-06] MEDS: CYANOCOBALAMIN 1,000 MCG TABLET PO SCH (09:05)
[2018-09-06] MEDS: VERAPAMIL SR 180 MG TABLET.SA PO SCH (09:06)
[2018-09-06] MEDS: HYDROCODONE/APAP 5-325MG TABLET PO PRN (13:09)
--- NOTE | 2018-09-06 13:13 | NUR ---
Seen and examined by Neurology Rima/PARTS CONSULTANT, meclizine started. Discussed plan with family and staff. Complained of right shoulder pain. PRN [place] given. Refused lunch, encouraged and discussed adequate nutrition. Encouraged small frequent feedings.
[2018-09-06] MEDS: MECLIZINE HCL 12.5 MG TABLET PO SCH ×2 (14:51→21:07)
[2018-09-06 15:30] VITALS: BP 145/70
[2018-09-06 16:42] LABS: *BILIRUBIN,URIN NEGATIVE (NEGATIVE); *BLOOD, URINE NEGATIVE (NEGATIVE); *CLARITY,URINE CLEAR (CLEAR); *COLOR,URINE YELLOW (YELLOW); *KETONES,URINE NEGATIVE (NEGATIVE); *UROBILINOGEN,URINE 0.2 E.U./dl (NORMAL); LEUKOCYTE ESTERASE ,URINE TRACE (NEGATIVE); NITRITE, URINE NEGATIVE (NEGATIVE); UGLUCOSE NEGATIVE (NEGATIVE)
[2018-09-06 16:47] LABS: BACTERIA,URINE NONE SEEN /HPF (NONE SEEN); RBC,URINE 0-3 /HPF (0-3); SQUAMOUS EPITHELIAL CELL,UR FEW /HPF (NONE SEEN); WBC,URINE 0-3 /HPF (0-3)
[2018-09-06 20:09] VITALS: BP 134/61
[2018-09-06] MEDS: DOCUSATE SODIUM 100 MG CAPSULE PO SCH (21:06)
--- NOTE | 2018-09-06 22:56 | NUR ---
Received pt in bed, AAO x 3 watching television. No acute distress noted. Verbally responsive and able to make needs known. C/O generalized aching pain. Offered pain medication but patient stated "pain is tolerable". Right sling noted in place. All safety measures and fall precautions maintained. Call light and all personal belongings within reach. All due medications given as ordered, tolerated well. Will continue to monitor. Addendum: 09/06/18 at 2310 by Tono Russell RN Patient verbalizing pain on bilateral heels. Upon assessment, noted with bilateral heel redness. Offloading bilateral heels using pillow. Repositioned to left side with supporting pillows. Pictures taken and placed in chart.
[2018-09-07 05:21] VITALS: BP 138/65
[2018-09-07] MEDS: MECLIZINE HCL 12.5 MG TABLET PO SCH ×3 (05:41→22:05)
[2018-09-07 08:00] VITALS: BP 149/69
--- NOTE | 2018-09-07 08:00 | NUR ---
Received patient, awake, alert x3-4. Not in any form of distress. Arm sling over right shoulder in place. With pain, however refused pain medications. Patient said she is nauseated and refused any medications at the moment. Consumed only 25% of breakfast. Encouraged small frequent meals.
[2018-09-07 08:44] LABS: THYROID STIMULATING HORMONE 3.888 mIU/mL (0.358-3.740)
--- NOTE | 2018-09-07 09:34 | NUR ---
With speech therapy, complained of pain over left hand. Offered pain medications but refused, applied ice over left hand area. Tolerating speech therapy well.
[2018-09-07] MEDS: VERAPAMIL SR 180 MG TABLET.SA PO SCH (09:55)
[2018-09-07] MEDS: CYANOCOBALAMIN 1,000 MCG TABLET PO SCH (09:55)
[2018-09-07] MEDS: hydrALAZINE HCL 25 MG TABLET PO SCH ×2 (09:55→21:02)
[2018-09-07] MEDS: CHOLECALCIFEROL 1,000 UNIT TABLET PO SCH (09:55)
[2018-09-07] MEDS: GABAPENTIN 100 MG CAPSULE PO SCH ×3 (09:56→18:07)
[2018-09-07] MEDS: DONEPEZIL 10 MG TABLET PO SCH (09:56)
[2018-09-07] MEDS: FLUTICASONE PROP NASAL SPRAY 16 GM BOTTLE NS SCH (09:57)
[2018-09-07] MEDS: APIXABAN 2.5 MG PO SCH ×2 (10:11→18:11)
[2018-09-07 16:00] VITALS: BP 129/72
--- NOTE | 2018-09-07 19:00 | NUR ---
Received patient awake, up at the bedside with LAB COURIER. Denies any pain/discomforts at this time. Safety measure and fall precaution maintained. Continue care as planned.
[2018-09-07 20:17] VITALS: BP 139/75
[2018-09-07] MEDS: DOCUSATE SODIUM 100 MG CAPSULE PO SCH (21:02)
[2018-09-08 05:20] VITALS: BP 132/65
[2018-09-08] MEDS: MECLIZINE HCL 12.5 MG TABLET PO SCH ×3 (06:10→21:11)
--- NOTE | 2018-09-08 06:26 | NUR ---
Shift End Report: Slept good. No complaint presented . No fall/injury. All needs attended and met. VS stable. No significant event reported all night. Continue care as planned.
[2018-09-08 07:00] VITALS: BP 137/74
[2018-09-08] MEDS: FLUTICASONE PROP NASAL SPRAY 16 GM BOTTLE NS SCH (09:44)
[2018-09-08] MEDS: CHOLECALCIFEROL 1,000 UNIT TABLET PO SCH (09:44)
[2018-09-08] MEDS: GABAPENTIN 100 MG CAPSULE PO SCH ×3 (09:45→17:01)
[2018-09-08] MEDS: VERAPAMIL SR 180 MG TABLET.SA PO SCH (09:45)
[2018-09-08] MEDS: hydrALAZINE HCL 25 MG TABLET PO SCH ×2 (09:45→20:43)
[2018-09-08] MEDS: CYANOCOBALAMIN 1,000 MCG TABLET PO SCH (09:45)
[2018-09-08] MEDS: DONEPEZIL 10 MG TABLET PO SCH (09:45)
[2018-09-08] MEDS: APIXABAN 2.5 MG PO SCH ×2 (09:47→17:01)
[2018-09-08 15:44] VITALS: BP 128/60
[2018-09-08 20:32] VITALS: BP 129/60
[2018-09-08] MEDS: DOCUSATE SODIUM 100 MG CAPSULE PO SCH (20:43)
[2018-09-09 04:00] VITALS: BP 131/68
[2018-09-09] MEDS: MECLIZINE HCL 12.5 MG TABLET PO SCH ×3 (06:26→21:11)
[2018-09-09 08:00] VITALS: BP 121/62
[2018-09-09] MEDS: CHOLECALCIFEROL 1,000 UNIT TABLET PO SCH (08:48)
[2018-09-09] MEDS: FLUTICASONE PROP NASAL SPRAY 16 GM BOTTLE NS SCH (08:48)
[2018-09-09] MEDS: CYANOCOBALAMIN 1,000 MCG TABLET PO SCH (08:48)
[2018-09-09] MEDS: GABAPENTIN 100 MG CAPSULE PO SCH ×3 (08:48→17:34)
[2018-09-09] MEDS: DONEPEZIL 10 MG TABLET PO SCH (08:48)
[2018-09-09] MEDS: VERAPAMIL SR 180 MG TABLET.SA PO SCH (08:49)
[2018-09-09] MEDS: hydrALAZINE HCL 25 MG TABLET PO SCH ×2 (08:49→20:32)
[2018-09-09] MEDS: APIXABAN 2.5 MG PO SCH ×2 (08:50→17:37)
--- NOTE | 2018-09-09 10:37 | NUR ---
Up with occupational therapy, tolerating well. Refused pain medications at the moment. Morning care done, theodore-care done.
--- NOTE | 2018-09-09 11:34 | NUR ---
Received patient, awake, alert x3-4. Not in any form of distress. Arm sling over right shoulder in place. Not in any form of distress. With dizziness only when standing up or ambulation. No nausea noted. Encouraged small frequent meals. Tolerated AM medications.
--- NOTE | 2018-09-09 13:11 | NUR ---
INTERDISCIPLINARY TEAM CONFERENCE
[2018-09-09 16:19] VITALS: BP 147/65
--- NOTE | 2018-09-09 18:37 | NUR ---
Seen on rounding, with family friend at bedside. Able tolerate dinner at 50%, with better oral intake today. Denies any pain, arm sling on right arm intact and in place
[2018-09-09 20:05] VITALS: BP 122/63
[2018-09-09] MEDS: DOCUSATE SODIUM 100 MG CAPSULE PO SCH (20:32)
--- NOTE | 2018-09-09 23:43 | NUR ---
Received pt in bed, AAO x 3 watching television. No acute distress noted. Verbally responsive and able to make needs known. Denies pain or discomfort at this time. Offered pain medication but patient stated "pain is tolerable". Right sling noted in place. Offloading bilateral heels using pillow. All safety measures and fall precautions maintained. Call light and all personal belongings within reach. All due medications given as ordered, tolerated well. Will continue to monitor.
[2018-09-10 04:30] VITALS: BP 125/68
[2018-09-10] MEDS: MECLIZINE HCL 12.5 MG TABLET PO SCH ×3 (06:05→21:19)
[2018-09-10 07:30] VITALS: BP 127/68
[2018-09-10 07:30] LABS: BASOPHILS # (AUTO) 0.1 K/uL (0.0-8.0); EOSINOPHILS # (AUTO) 0.3 K/uL (0.0-0.7); EOSINOPHILS % (AUTO) 3.7 % (0.0-7.0); HEMATOCRIT 38.9 % (31.2-41.9); HEMOGLOBIN 13.5 g/dL (10.9-14.3); LYMPHOCYTES # (AUTO) 1.9 K/uL (20.0-40.0); LYMPHOCYTES % (AUTO) 23.7 % (20.5-51.5); MEAN CORPUSCULAR HGB CONC 35 g/dL (32.3-35.6); MEAN CORPUSCULAR VOLUME 92.2 fL (75.5-95.3); MONOCYTES # (AUTO) 0.7 K/uL (2.0-10.0); NEUTROPHILS # (AUTO) 5.2 K/uL (1.8-8.9); NEUTROPHILS % (AUTO) 63.6 % (38.5-71.5); PLATELET COUNT (AUTO) 521 K/uL (179-408); RED BLOOD CELL COUNT(AUTO) 4.22 MIL/uL (3.63-4.92); WHITE BLOOD COUNT (AUTO) 8.2 K/uL (3.8-11.8)
[2018-09-10 07:43] LABS: CARBON DIOXIDE 22 mmol/L (21-32); CHLORIDE 107 mmol/L (98-107); CREATININE 1.3 mg/dL (0.6-1.3); GLUCOSE 80 mg/dL (74-106); MAGNESIUM 2.1 mg/dL (1.8-2.4); PHOSPHOROUS 3.6 mg/dL (2.5-4.9); UREA NITROGEN, BLOOD 24 mg/dL (7-18)
[2018-09-10] MEDS: DONEPEZIL 10 MG TABLET PO SCH (09:15)
[2018-09-10] MEDS: FLUTICASONE PROP NASAL SPRAY 16 GM BOTTLE NS SCH (09:15)
[2018-09-10] MEDS: GABAPENTIN 100 MG CAPSULE PO SCH ×3 (09:16→17:20)
[2018-09-10] MEDS: CHOLECALCIFEROL 1,000 UNIT TABLET PO SCH (09:16)
[2018-09-10] MEDS: CYANOCOBALAMIN 1,000 MCG TABLET PO SCH (09:16)
[2018-09-10] MEDS: VERAPAMIL SR 180 MG TABLET.SA PO SCH (09:20)
[2018-09-10] MEDS: hydrALAZINE HCL 25 MG TABLET PO SCH ×2 (09:21→21:18)
[2018-09-10] MEDS: APIXABAN 2.5 MG PO SCH ×2 (09:23→17:30)
[2018-09-10 16:00] VITALS: BP 124/61
--- NOTE | 2018-09-10 19:40 | NUR ---
Patient received in bed. AAO x3. Able to make needs known. No sign of acute distress or SOB was noted. On room air. Her daughter at the bedside. Complained of pain on right shoulder rating 6/10. Right shoulder in sling. Patient assessed. Safety measures maintained. Fall prevention observed. Bed in low position, brake and alarm on, side rails up x2 for safety. Call light and personal belongings within reach. Will continue to monitor.
[2018-09-10] MEDS: HYDROCODONE/APAP 5-325MG TABLET PO PRN (19:49)
[2018-09-10 20:00] VITALS: BP 117/60
[2018-09-10] MEDS: DOCUSATE SODIUM 100 MG CAPSULE PO SCH (21:17)
[2018-09-11 04:42] VITALS: BP 134/61
--- NOTE | 2018-09-11 05:09 | NUR ---
End of the shift note Patient was stable throughout the shift and had a good sleep last night. No sign of acute distress or SOB noted. Complained of shoulder pain, rated 6/10, [place] 5-325 mg tab given and pain assessed and reassessed. Medications given as ordered and well tolerated. Keep her clean and dry. Safety measures maintained. Hourly rounds done. All needs anticipated promptly. Fall precaution maintained. Bed in low position, brake and alarm on, side rails up x3. DVT Pump placed. Call light and personal belongings within reach. Continue to monitor and will endorse to the day shift nurse accordingly.
[2018-09-11] MEDS: MECLIZINE HCL 12.5 MG TABLET PO SCH ×3 (06:04→21:00)
[2018-09-11 08:00] VITALS: BP 130/64
--- NOTE | 2018-09-11 09:00 | NUR ---
Received patient awake, alert x3-4. Not in any form of distress. Denies any pain at the moment. Said she pancakes were cold and she prefers something warm for breakfast. Encouraged to call for needs and turn/ move in bed as much as she can. Will continue to monitor.
[2018-09-11] MEDS: APIXABAN 2.5 MG PO SCH ×2 (09:53→17:46)
[2018-09-11] MEDS: GABAPENTIN 100 MG CAPSULE PO SCH ×3 (09:54→17:45)
[2018-09-11] MEDS: CYANOCOBALAMIN 1,000 MCG TABLET PO SCH (09:54)
[2018-09-11] MEDS: DONEPEZIL 10 MG TABLET PO SCH (09:54)
[2018-09-11] MEDS: FLUTICASONE PROP NASAL SPRAY 16 GM BOTTLE NS SCH (09:55)
[2018-09-11] MEDS: hydrALAZINE HCL 25 MG TABLET PO SCH ×2 (09:56→20:54)
[2018-09-11] MEDS: VERAPAMIL SR 180 MG TABLET.SA PO SCH (09:56)
[2018-09-11] MEDS: CHOLECALCIFEROL 1,000 UNIT TABLET PO SCH (09:56)
--- NOTE | 2018-09-11 14:07 | NUR ---
Seen on rounding, was able to tolerate lunch well. Dizziness improved according to patient. No pain on right shoulder at rest.
[2018-09-11 16:21] VITALS: BP 118/58
[2018-09-11] MEDS ORDERED: MECLIZINE HCL 25 MG TABLET ONE (20:34)
--- NOTE | 2018-09-11 20:50 | NUR ---
Meclizine 12.5 mg PO not available in cassette or pyxis. Accounts Supervisor made aware and brought Meclizine 25mg tab. Medication cut in half to equal 12.5 mg per MD order. Accounts Supervisor aware. Will continue to monitor.
[2018-09-11] MEDS: DOCUSATE SODIUM 100 MG CAPSULE PO SCH (20:54)
[2018-09-11 21:06] VITALS: BP 129/66
--- NOTE | 2018-09-11 21:48 | NUR ---
Received pt in bed, AAO x 3 watching television. No acute distress noted. Verbally responsive and able to make needs known. Denies pain or discomfort at this time. All due medications given as ordered by MD, tolerated well. All safety measures and fall precautions maintained. Call light and all personal belongings within reach. Sling on right arm in place. Offloading bilateral right heels. Refusing to be turned & repositioned at this time. Will continue to monitor.
[2018-09-12 04:36] VITALS: BP 154/74
[2018-09-12] MEDS: MECLIZINE HCL 12.5 MG TABLET PO SCH ×3 (05:15→21:02)
[2018-09-12 07:47] VITALS: BP 148/63
--- NOTE | 2018-09-12 08:00 | NUR ---
Patient noted resting in bed with eyes closed, will premedicate patient prior to therapy session, no signs of distress noted, call light in reach, bed locked and in lowest position, all needs met at this time
[2018-09-12] MEDS: GABAPENTIN 100 MG CAPSULE PO SCH ×3 (08:28→16:54)
[2018-09-12] MEDS: CYANOCOBALAMIN 1,000 MCG TABLET PO SCH (08:28)
[2018-09-12] MEDS: DONEPEZIL 10 MG TABLET PO SCH (08:28)
[2018-09-12] MEDS: CHOLECALCIFEROL 1,000 UNIT TABLET PO SCH (08:28)
[2018-09-12] MEDS: HYDROCODONE/APAP 5-325MG TABLET PO PRN (08:29)
[2018-09-12] MEDS: APIXABAN 2.5 MG PO SCH ×2 (08:31→16:56)
[2018-09-12] MEDS: hydrALAZINE HCL 25 MG TABLET PO SCH ×2 (08:33→21:02)
[2018-09-12] MEDS: VERAPAMIL SR 180 MG TABLET.SA PO SCH (08:33)
[2018-09-12] MEDS: FLUTICASONE PROP NASAL SPRAY 16 GM BOTTLE NS SCH (08:34)
[2018-09-12 20:25] VITALS: BP 146/62
[2018-09-12] MEDS: DOCUSATE SODIUM 100 MG CAPSULE PO SCH (21:02)
--- NOTE | 2018-09-12 23:28 | NUR ---
Received pt in bed, appearing to be asleep but easily arousable to verbal stimuli and light touch. No acute distress noted. Denies pain or discomfort. Verbally responsive and able to make needs known. All due medications given as ordered by MD, tolerated well. All safety measures and fall precautions maintained. Offloading bilateral heels. Call light and all personal belongings within reach. Will continue to monitor.
[2018-09-13] MEDS: HYDROCODONE/APAP 5-325MG TABLET PO PRN ×2 (00:35→10:37)
[2018-09-13 04:32] VITALS: BP 142/63
[2018-09-13] MEDS: MECLIZINE HCL 12.5 MG TABLET PO SCH ×3 (06:06→22:08)
[2018-09-13 07:20] LABS: BASOPHILS # (AUTO) 0.1 K/uL (0.0-8.0); EOSINOPHILS # (AUTO) 0.3 K/uL (0.0-0.7); EOSINOPHILS % (AUTO) 2.3 % (0.0-7.0); HEMATOCRIT 39.8 % (31.2-41.9); HEMOGLOBIN 13.1 g/dL (10.9-14.3); LYMPHOCYTES # (AUTO) 1.6 K/uL (20.0-40.0); LYMPHOCYTES % (AUTO) 13.4 % (20.5-51.5); MEAN CORPUSCULAR HEMOGLOBIN 30.2 uug (24.7-32.8); MEAN CORPUSCULAR HGB CONC 33 g/dL (32.3-35.6); MEAN CORPUSCULAR VOLUME 92.1 fL (75.5-95.3); MONOCYTES % (AUTO) 8.7 % (0.0-11.0); NEUTROPHILS # (AUTO) 8.8 K/uL (1.8-8.9); NEUTROPHILS % (AUTO) 74.6 % (38.5-71.5); PLATELET COUNT (AUTO) 541 K/uL (179-408); RED BLOOD CELL COUNT(AUTO) 4.32 MIL/uL (3.63-4.92); WHITE BLOOD COUNT (AUTO) 11.8 K/uL (3.8-11.8)
[2018-09-13 07:28] LABS: CARBON DIOXIDE 25 mmol/L (21-32); CHLORIDE 107 mmol/L (98-107); CREATININE 1.3 mg/dL (0.6-1.3); GLUCOSE 85 mg/dL (74-106); POTASSIUM 4.2 mmol/L (3.5-5.1); UREA NITROGEN, BLOOD 22 mg/dL (7-18)
[2018-09-13 07:39] VITALS: BP 125/69
[2018-09-13] MEDS: CHOLECALCIFEROL 1,000 UNIT TABLET PO SCH (08:48)
[2018-09-13] MEDS: FLUTICASONE PROP NASAL SPRAY 16 GM BOTTLE NS SCH (08:48)
[2018-09-13] MEDS: DONEPEZIL 10 MG TABLET PO SCH (08:54)
[2018-09-13] MEDS: GABAPENTIN 100 MG CAPSULE PO SCH ×3 (08:54→17:20)
[2018-09-13] MEDS: CYANOCOBALAMIN 1,000 MCG TABLET PO SCH (08:54)
[2018-09-13] MEDS: APIXABAN 2.5 MG PO SCH ×2 (08:56→17:21)
[2018-09-13] MEDS: VERAPAMIL SR 180 MG TABLET.SA PO SCH (09:00)
[2018-09-13] MEDS: hydrALAZINE HCL 25 MG TABLET PO SCH ×2 (09:00→20:46)
--- NOTE | 2018-09-13 09:21 | NUR ---
Patient awake, alert, up on bed, just had breakfast, not in any form of acute distress. She denies any pain or discomfort at this time. Patient tolerated due medications at this time. Assisted with her needs. Call light and frequently used items placed within reach.
--- NOTE | 2018-09-13 11:07 | NUR ---
Patient up ambulating with physical therapist, not in distress, no complain of any discomfort at this time.
[2018-09-13 15:58] VITALS: BP 131/56
[2018-09-13 19:53] VITALS: BP 116/62
[2018-09-13] MEDS: DOCUSATE SODIUM 100 MG CAPSULE PO SCH (20:45)
[2018-09-14 05:59] VITALS: BP 121/63
[2018-09-14] MEDS: MECLIZINE HCL 12.5 MG TABLET PO SCH ×3 (06:16→21:16)
--- NOTE | 2018-09-14 07:32 | NUR ---
Patient noted resting in bed with eyes closed, no facial cues of pain noted, no signs of distress noted, call light in reach, bed locked and in lowest position, all needs met at this time
[2018-09-14 07:46] VITALS: BP 137/64
[2018-09-14] MEDS: DONEPEZIL 10 MG TABLET PO SCH (08:44)
[2018-09-14] MEDS: VERAPAMIL SR 180 MG TABLET.SA PO SCH (08:44)
[2018-09-14] MEDS: CYANOCOBALAMIN 1,000 MCG TABLET PO SCH (08:44)
[2018-09-14] MEDS: HYDROCODONE/APAP 5-325MG TABLET PO PRN ×2 (08:45→18:59)
[2018-09-14] MEDS: GABAPENTIN 100 MG CAPSULE PO SCH ×3 (08:45→17:11)
[2018-09-14] MEDS: CHOLECALCIFEROL 1,000 UNIT TABLET PO SCH (08:45)
[2018-09-14] MEDS: hydrALAZINE HCL 25 MG TABLET PO SCH ×2 (08:46→20:46)
[2018-09-14] MEDS: FLUTICASONE PROP NASAL SPRAY 16 GM BOTTLE NS SCH (08:46)
[2018-09-14] MEDS: APIXABAN 2.5 MG PO SCH ×2 (08:50→17:14)
[2018-09-14 15:50] VITALS: BP 120/60
[2018-09-14] MEDS ORDERED: ONDANSETRON HCL 4 MG TABLET PO PRN ×2 (18:30→20:15)
--- NOTE | 2018-09-14 19:19 | NUR ---
PRN [place] given twice this shift for right shoulder pain, took all medications this shift, no changes this shift
--- NOTE | 2018-09-14 19:35 | NUR ---
Patient received in bed. AAO x3. Able to make needs known. No sign of acute distress or SOB was noted. On room air. Her family at the bedside. Complained of acid reflux. Right shoulder in sling. Patient assessed. Safety measures maintained. Fall prevention observed. Bed in low position, brake and alarm on, side rails up x2 for safety. Call light and personal belongings within reach. Will continue to monitor.
[2018-09-14] MEDS ORDERED: METOCLOPRAMIDE HCL 10 MG/2 ML VIAL IV PRN (20:00)
--- NOTE | 2018-09-14 20:00 | NUR ---
Patient complained of acid reflux. Her daughter stated that patient did not eat well for the past 2 days because of N & V. Patient had Reglan 5 mg IV injection PRN, but she did not want IV injection. Contacted Dr. Cope about the patient's complains. Dr. Cope ordered Maalox suspension 30 ml for her GI upset and changed the IV to PO med (Reglan 5 mg tab Q6H PRN). Continue to monitor.
[2018-09-14 20:32] VITALS: BP 114/65
[2018-09-14] MEDS: MAG HYDROX/AL HYDROX/SIMETH 30 ML LIQUID UDC PO PRN (20:45)
[2018-09-14] MEDS: DOCUSATE SODIUM 100 MG CAPSULE PO SCH (20:46)
[2018-09-15 04:45] VITALS: BP 134/78
--- NOTE | 2018-09-15 05:02 | NUR ---
End of the shift note Patient was stable throughout the shift and had a good sleep last night. No sign of acute distress or SOB noted. No Complain of pain. Medications given as ordered and well tolerated. Keep her clean and dry. Safety measures maintained. Hourly rounds done. All needs anticipated promptly. Fall precaution maintained. Bed in low position, brake and alarm on, side rails up x3. Call light and personal belongings within reach. Continue to monitor and will endorse to the day shift nurse accordingly.
[2018-09-15] MEDS: PANTOPRAZOLE SODIUM 40 MG TABLET.DR PO SCH (06:07)
[2018-09-15] MEDS: MECLIZINE HCL 12.5 MG TABLET PO SCH ×3 (06:07→21:47)
[2018-09-15 08:00] VITALS: BP 123/67
[2018-09-15] MEDS ORDERED: FAMOTIDINE 20 MG TABLET PO SCH (09:00)
--- NOTE | 2018-09-15 09:00 | NUR ---
Patient awake, alert, not in any form of acute distress. Right arm sling in place. Patient states a tolerable pain on right shoulder and she said no need for pain medication. Assisted with her needs. Call light and frequently used items placed within reach.
[2018-09-15] MEDS: CHOLECALCIFEROL 1,000 UNIT TABLET PO SCH (09:38)
[2018-09-15] MEDS: CYANOCOBALAMIN 1,000 MCG TABLET PO SCH (09:38)
[2018-09-15] MEDS: FLUTICASONE PROP NASAL SPRAY 16 GM BOTTLE NS SCH (09:38)
[2018-09-15] MEDS: DONEPEZIL 10 MG TABLET PO SCH (09:38)
[2018-09-15] MEDS: hydrALAZINE HCL 25 MG TABLET PO SCH ×2 (09:39→21:46)
[2018-09-15] MEDS: VERAPAMIL SR 180 MG TABLET.SA PO SCH (09:39)
[2018-09-15] MEDS: APIXABAN 2.5 MG PO SCH ×2 (09:40→17:23)
[2018-09-15] MEDS: METOCLOPRAMIDE HCL 5 MG TABLET PO PRN (11:33)
[2018-09-15] MEDS: HYDROCODONE/APAP 5-325MG TABLET PO PRN ×2 (11:41→19:55)
[2018-09-15 16:00] VITALS: BP 131/60
[2018-09-15 19:32] VITALS: BP 126/54
[2018-09-15] MEDS: DOCUSATE SODIUM 100 MG CAPSULE PO SCH (20:02)
[2018-09-16 05:32] VITALS: BP 139/60
[2018-09-16] MEDS: PANTOPRAZOLE SODIUM 40 MG TABLET.DR PO SCH (06:26)
[2018-09-16] MEDS: MECLIZINE HCL 12.5 MG TABLET PO SCH ×3 (06:26→21:46)
[2018-09-16 08:00] VITALS: BP 151/71
[2018-09-16] MEDS: FLUTICASONE PROP NASAL SPRAY 16 GM BOTTLE NS SCH (10:02)
[2018-09-16] MEDS: hydrALAZINE HCL 25 MG TABLET PO SCH ×2 (10:03→20:33)
[2018-09-16] MEDS: CHOLECALCIFEROL 1,000 UNIT TABLET PO SCH (10:03)
[2018-09-16] MEDS: CYANOCOBALAMIN 1,000 MCG TABLET PO SCH (10:04)
[2018-09-16] MEDS: DONEPEZIL 10 MG TABLET PO SCH (10:04)
[2018-09-16] MEDS: VERAPAMIL SR 180 MG TABLET.SA PO SCH (10:05)
[2018-09-16] MEDS: APIXABAN 2.5 MG PO SCH ×2 (10:16→18:03)
[2018-09-16 16:00] VITALS: BP 126/61
--- NOTE | 2018-09-16 16:11 | NUR ---
INTERDISCIPLINARY TEAM CONFERENCE
[2018-09-16] MEDS: HYDROCODONE/APAP 5-325MG TABLET PO PRN (17:51)
[2018-09-16] MEDS: METOCLOPRAMIDE HCL 5 MG TABLET PO PRN (17:52)
[2018-09-16] MEDS ORDERED: BISACODYL 5 MG TABLET.DR PO PRN (19:30)
--- NOTE | 2018-09-16 19:30 | NUR ---
SBAR report received this morning, board updated. Pt assessed, no acute distress or SOB evident. Pt reported pain 8/10, PRN pain medication administered per MD orders. Pt compliant with all routinely scheduled medications. VSS. Constipation reported. Pt seen by MD, new order for Dulcolax 10mg PRN QDaily. Bed in locked and lowest position with side rails up x2. Pt cooperative with care, showered with therapist during therapy. Daughter visiting at bedside. Pt reported nausea resolved following administration of PRN anti-nausea medication. All safety and comfort concerns addressed. Call light and personal belongings placed within reach. Will continue to monitor and endorse to oncoming shift boss nurse.
[2018-09-16 20:00] VITALS: BP 127/57
[2018-09-16] MEDS: DOCUSATE SODIUM 100 MG CAPSULE PO SCH (20:33)
[2018-09-16] MEDS: MAG HYDROX/AL HYDROX/SIMETH 30 ML LIQUID UDC PO PRN (20:33)
[2018-09-17 04:00] VITALS: BP 160/73
[2018-09-17] MEDS: MECLIZINE HCL 12.5 MG TABLET PO SCH ×3 (06:00→20:46)
[2018-09-17] MEDS: PANTOPRAZOLE SODIUM 40 MG TABLET.DR PO SCH (07:00)
--- NOTE | 2018-09-17 07:30 | NUR ---
PT'S ON BED STILL ASLEEP DURING NURSING ROUNDS , NOT IN RESPIRATORY DISTRESS.
[2018-09-17 08:00] VITALS: BP 153/67
[2018-09-17] MEDS: FLUTICASONE PROP NASAL SPRAY 16 GM BOTTLE NS SCH (09:54)
[2018-09-17] MEDS: DONEPEZIL 10 MG TABLET PO SCH (09:55)
[2018-09-17] MEDS: hydrALAZINE HCL 25 MG TABLET PO SCH ×3 (09:55→23:16)
[2018-09-17] MEDS: VERAPAMIL SR 180 MG TABLET.SA PO SCH (09:56)
[2018-09-17] MEDS: CYANOCOBALAMIN 1,000 MCG TABLET PO SCH (09:56)
[2018-09-17] MEDS: CHOLECALCIFEROL 1,000 UNIT TABLET PO SCH (09:56)
[2018-09-17] MEDS: APIXABAN 2.5 MG PO SCH ×2 (09:57→17:29)
[2018-09-17] MEDS: HYDROCODONE/APAP 5-325MG TABLET PO PRN (14:02)
--- NOTE | 2018-09-17 14:29 | NUR ---
HAD MEDIUM FORMED BROWN STOOL THIS MORNING . PERICARE DONE. NOR[place] 1 TAB PO GIVEN PAIN SCALE 8/10 OF THE RIGHT ARM 9 WITH SLING) AT 1404.
[2018-09-17 16:00] VITALS: BP 130/59
--- NOTE | 2018-09-17 18:11 | NUR ---
NO C/O DIZZINESS ALL THROUGHOUT THE SHIFT . NO C/O PAIN AFTER GIVING THE NORCO AT 1404.AMBULATED WITH PHYSICAL THERAPIST TODAY. ALL NEEDS ATTENDED.
[2018-09-17 19:40] VITALS: BP 108/54
[2018-09-17] MEDS: DOCUSATE SODIUM 100 MG CAPSULE PO SCH (20:46)
--- NOTE | 2018-09-17 21:32 | NUR ---
Received pt resting in bed and watching TV. AAO x3. No acute distress noted. No c/o pain or discomfort. Safety measures maintained. Call light and personal belongings within reach. Will continue to monitor.
[2018-09-18 04:30] VITALS: BP 131/65
[2018-09-18] MEDS: MECLIZINE HCL 12.5 MG TABLET PO SCH ×3 (06:16→21:12)
[2018-09-18] MEDS: hydrALAZINE HCL 25 MG TABLET PO SCH ×3 (06:16→21:13)
[2018-09-18] MEDS: PANTOPRAZOLE SODIUM 40 MG TABLET.DR PO SCH (06:16)
[2018-09-18] MEDS: CHOLECALCIFEROL 1,000 UNIT TABLET PO SCH (08:04)
[2018-09-18] MEDS: DONEPEZIL 10 MG TABLET PO SCH (08:05)
[2018-09-18] MEDS: CYANOCOBALAMIN 1,000 MCG TABLET PO SCH (08:05)
[2018-09-18] MEDS: APIXABAN 2.5 MG PO SCH ×2 (08:07→16:13)
[2018-09-18] MEDS: VERAPAMIL SR 180 MG TABLET.SA PO SCH (08:08)
[2018-09-18] MEDS: FLUTICASONE PROP NASAL SPRAY 16 GM BOTTLE NS SCH (08:09)
[2018-09-18 08:19] VITALS: BP 139/74
--- NOTE | 2018-09-18 18:00 | NUR ---
Spoke with Dr. Odom on the telephone regarding pt's constipation and no bowel movement for 3 days per daughter. New orders received.
[2018-09-18] MEDS ORDERED: FLEET ENEMA 133 ML BOTTLE RC PRN (18:15)
[2018-09-18] MEDS: FLEET ENEMA 133 ML BOTTLE RC PRN (18:40)
[2018-09-18] MEDS: HYDROCODONE/APAP 5-325MG TABLET PO PRN (18:50)
--- NOTE | 2018-09-18 19:40 | NUR ---
Patient received in bed. AAO x3. Able to make needs known. No sign of acute distress or SOB was noted. On room air. Her daughter at the bedside. No Complain of pain at this time. Right shoulder in sling. Patient assessed. Safety measures maintained. Fall prevention observed. Bed in low position, brake and alarm on, side rails up x2 for safety. Call light and personal belongings within reach. Will continue to monitor.
[2018-09-18 19:45] VITALS: BP 148/61
[2018-09-18] MEDS: DOCUSATE SODIUM 100 MG CAPSULE PO SCH (21:12)
[2018-09-19 04:46] VITALS: BP 121/67
[2018-09-19] MEDS: hydrALAZINE HCL 25 MG TABLET PO SCH ×3 (06:00→21:00)
[2018-09-19] MEDS: MECLIZINE HCL 12.5 MG TABLET PO SCH ×3 (06:01→21:00)
[2018-09-19] MEDS: PANTOPRAZOLE SODIUM 40 MG TABLET.DR PO SCH (06:01)
--- NOTE | 2018-09-19 06:10 | NUR ---
Hydralazine 25 mg tab was held because of low HR:58, BP:121/67. Continue to monitor.
--- NOTE | 2018-09-19 06:55 | NUR ---
End of the shift note Patient was stable throughout the shift and had a good sleep last night. No sign of acute distress or SOB noted. No Complain of pain. Medications given as ordered and well tolerated. Safety measures maintained. Hourly rounds done. All needs anticipated promptly. Fall precaution maintained. Bed in low position, brake and alarm on, side rails up x3. Call light and personal belongings within reach. Continue to monitor and will endorse to the day shift nurse accordingly.
[2018-09-19 08:00] VITALS: BP 167/69
[2018-09-19] MEDS: CYANOCOBALAMIN 1,000 MCG TABLET PO SCH (08:21)
[2018-09-19] MEDS: CHOLECALCIFEROL 1,000 UNIT TABLET PO SCH (08:21)
[2018-09-19] MEDS: DONEPEZIL 10 MG TABLET PO SCH (08:21)
[2018-09-19] MEDS: FLUTICASONE PROP NASAL SPRAY 16 GM BOTTLE NS SCH (08:21)
[2018-09-19] MEDS: HYDROCODONE/APAP 5-325MG TABLET PO PRN (08:22)
[2018-09-19] MEDS: VERAPAMIL SR 180 MG TABLET.SA PO SCH (08:23)
[2018-09-19] MEDS: APIXABAN 2.5 MG PO SCH (08:27)
--- NOTE | 2018-09-19 08:46 | NUR ---
Patient noted resting in bed, complaints of right shoulder pain, prn [place] given, took all morning medications, no signs of distress, call light in reach, bed locked and in lowest, all needs met
[2018-09-19] MEDS: APIXABAN 5 MG TABLET PO SCH (18:15)
--- NOTE | 2018-09-19 19:00 | NUR ---
Patient refused 1400 medications dues to feeling nauseous, patient offered medication for nausea but refused, refused a cold towel and crackers for nausea as well
[2018-09-19 19:56] VITALS: BP 153/77
[2018-09-19] MEDS: DOCUSATE SODIUM 100 MG CAPSULE PO SCH (20:55)
--- NOTE | 2018-09-20 05:19 | NUR ---
End of the shift note Patient was stable throughout the shift, but she did not have a good sleep last night, she tried to get out of bed and sit in the chair. Educated her to stay in the bed and back to sleep to be fresh and prepared for the PT. No sign of acute distress or SOB noted. No Complain of pain. Medications given as ordered and well tolerated. Safety measures maintained. Hourly rounds done. All needs anticipated promptly. Fall precaution maintained. Bed in low position, brake and alarm on, side rails up x3. Call light and personal belongings within reach. Continue to monitor and will endorse to the day shift nurse accordingly.
[2018-09-20] MEDS: MECLIZINE HCL 12.5 MG TABLET PO SCH ×3 (06:00→22:18)
[2018-09-20] MEDS: hydrALAZINE HCL 25 MG TABLET PO SCH ×3 (06:26→22:18)
[2018-09-20] MEDS: PANTOPRAZOLE SODIUM 40 MG TABLET.DR PO SCH (06:32)
--- NOTE | 2018-09-20 06:39 | NUR ---
Patient had high BP: 170/74, HR:64 this morning, No other symptoms. She refused all morning medication. Stated, "Medication with empty stomach make me nauseous, I will take medication after my breakfast". Educated her medication and informed her about her high BP. Offered her apple sauce with her medication. Only accepted to take Hydralazine 25 mg tab. Refused Meclizine 12.5 mg tab and Protonix 40 mg tab. Risks and benefits explained, demonstrated understanding, still refused. Will continue to monitor and will endorse to the day shift nurse.
[2018-09-20 07:01] VITALS: BP 156/88
[2018-09-20 08:25] VITALS: BP 145/75
[2018-09-20] MEDS: CYANOCOBALAMIN 1,000 MCG TABLET PO SCH (09:00)
[2018-09-20] MEDS: DONEPEZIL 10 MG TABLET PO SCH (09:00)
[2018-09-20] MEDS: CHOLECALCIFEROL 1,000 UNIT TABLET PO SCH (09:01)
[2018-09-20] MEDS: VERAPAMIL SR 180 MG TABLET.SA PO SCH (09:01)
[2018-09-20] MEDS: FLUTICASONE PROP NASAL SPRAY 16 GM BOTTLE NS SCH (09:01)
[2018-09-20] MEDS: APIXABAN 5 MG TABLET PO SCH ×2 (09:05→16:30)
[2018-09-20 10:23] VITALS: BP_SYST 108; BP_SYST 126; BP_SYST 137; BP_DIAS 68; BP_DIAS 74
--- NOTE | 2018-09-20 10:38 | NUR ---
Received patient awake in bed. Alert and orientedx3. Continue therapy today for ambulation, ADL and transfer ability. MD Borjas ordered orthostatic hypotension. BP- sitting 126/74 lying 137/68 standing 108/68. not in distress. will continue monitor
[2018-09-20] MEDS ORDERED: IV NS 1000 ML 1,000 ML IV ONE (12:45)
[2018-09-20 16:46] VITALS: BP 142/63
--- NOTE | 2018-09-20 18:29 | NUR ---
Patient daughter refuse to sign the acknowledgement that she receive the copy notice of financial liability form. MD Odom and [facility] unit aware.
--- NOTE | 2018-09-20 19:00 | NUR ---
Received patient awake, alert, family at bedside. Denies any pain/discomforts at this time. Safety measure and afll precaution maintained. Continue care as planned.
[2018-09-20 19:06] LABS: BASOPHILS # (AUTO) 0.1 K/uL (0.0-8.0); BASOPHILS % (AUTO) 1.4 % (0.0-2.0); EOSINOPHILS # (AUTO) 0.3 K/uL (0.0-0.7); EOSINOPHILS % (AUTO) 2.8 % (0.0-7.0); HEMATOCRIT 40.5 % (31.2-41.9); HEMOGLOBIN 13.7 g/dL (10.9-14.3); LYMPHOCYTES # (AUTO) 2.3 K/uL (20.0-40.0); LYMPHOCYTES % (AUTO) 25.6 % (20.5-51.5); MEAN CORPUSCULAR HEMOGLOBIN 31.2 uug (24.7-32.8); MEAN CORPUSCULAR HGB CONC 34 g/dL (32.3-35.6); MEAN CORPUSCULAR VOLUME 91.8 fL (75.5-95.3); MONOCYTES # (AUTO) 0.6 K/uL (2.0-10.0); NEUTROPHILS # (AUTO) 5.8 K/uL (1.8-8.9); NEUTROPHILS % (AUTO) 63.2 % (38.5-71.5); PLATELET COUNT (AUTO) 458 K/uL (179-408); RED BLOOD CELL COUNT(AUTO) 4.41 MIL/uL (3.63-4.92); WHITE BLOOD COUNT (AUTO) 9.1 K/uL (3.8-11.8)
[2018-09-20 19:29] LABS: CARBON DIOXIDE 24 mmol/L (21-32); CHLORIDE 107 mmol/L (98-107); CREATININE 1.5 mg/dL (0.6-1.3); GLUCOSE 99 mg/dL (74-106); POTASSIUM 3.5 mmol/L (3.5-5.1); UREA NITROGEN, BLOOD 21 mg/dL (7-18)
[2018-09-20 19:46] VITALS: BP 153/76
[2018-09-20] MEDS ORDERED: METOCLOPRAMIDE HCL 10 MG/2 ML VIAL IV PRN (20:15)
--- NOTE | 2018-09-20 20:22 | NUR ---
Patient's daughter reported that patient is nauseated and they wants the Reglan right away. Dr pearce made aware and with new order given. Reglan 5 mg IV as ordered. Will monitor.
[2018-09-20] MEDS: FLEET ENEMA 133 ML BOTTLE RC PRN (20:41)
[2018-09-20] MEDS: DOCUSATE SODIUM 100 MG CAPSULE PO SCH (20:42)
--- NOTE | 2018-09-20 20:45 | NUR ---
Fleet enema given per daughter's request and as needed for constipation. Will monitor.
--- NOTE | 2018-09-20 21:15 | NUR ---
Fleet enema effective. Had loose brown stool in moderate amount. Good theodore care rendered, tolerated well.
[2018-09-21] MEDS ORDERED: METOCLOPRAMIDE HCL 10 MG/2 ML VIAL IV SCH ×2
[2018-09-21] MEDS: MECLIZINE HCL 12.5 MG TABLET PO SCH (05:56)
[2018-09-21] MEDS: hydrALAZINE HCL 25 MG TABLET PO SCH (05:57)
--- NOTE | 2018-09-21 07:08 | NUR ---
Shift End Report: SBP 165/75. Pt on routine Apresoline medication, given. Will recheck Bp after an hour. Will endorse accordingly to oncoming nurse. All needs attended and met. No further complaint presented. Continue care as planned.
[2018-09-21 08:00] VITALS: BP 166/78
[2018-09-21] MEDS: FLUTICASONE PROP NASAL SPRAY 16 GM BOTTLE NS SCH (08:39)
[2018-09-21] MEDS: CHOLECALCIFEROL 1,000 UNIT TABLET PO SCH (08:39)
[2018-09-21] MEDS: DONEPEZIL 10 MG TABLET PO SCH (08:39)
[2018-09-21] MEDS: CYANOCOBALAMIN 1,000 MCG TABLET PO SCH (08:39)
[2018-09-21] MEDS: VERAPAMIL SR 180 MG TABLET.SA PO SCH (08:40)
[2018-09-21] MEDS: APIXABAN 5 MG TABLET PO SCH (08:45)
--- NOTE | 2018-09-21 10:05 | NUR ---
SBAR report received this morning, board updated. Pt assessed, NAD, pain, or SOB. Pt expressed being reluctant to take "so many medications" but was compliant to take morning medications as ordered. Pt assisted to toilet for BMx1 and voiding. Pt returned to bed and repositioned. All safety and comfort needs met. Call light and personal belongings placed within reach. Will continue to monitor.
[2018-09-21 11:31] VITALS: BP 155/81
[2018-09-21] MEDS ORDERED: hydrALAZINE HCL 25 MG TABLET PO SCH (12:00)
--- NOTE | 2018-09-21 12:45 | NUR ---
Discharge orders received. Pt seen by MD and REAL ESTATE DEVELOPER, consulted both with daughter Mikaela. All discharge concerns addressed. Pt personal belongings accounted for and list signed. Pt compliant with afternoon medication administration. VSS. Pt refused all additional photos for skin integrity stating "everything is fine! No more pictures!" following documentation of healing knee abrasion. Discharge paperwork discussed, signed, and copies placed in chart. Pt education provided to Pt and daughter. Home medications returned. New RX signed by MD, faxed to preferred pharmacy. FWW, BSC, and wheelchair provided at bedside and assisted into Pt daughter, Mikaela's car, along with all personal items. IV patent and removed intact. ID band removed. Pt safely escorted out in wheelchair to private car, with daughter Mikaela driving. Will remove Pt from system shortly.
== END 2018-09-21 12:40 | disposition home health service (06) | DRG 559 ==
PROVIDERS: ADMIT Physical Medicine & Rehabilitation Pain Medicine; ATTEND Physical Medicine & Rehabilitation Pain Medicine
DX: M80.021D Age-related osteoporosis with current pathological fracture, right humerus, subsequent encounter for fracture with routine healing (principal); E43 Unspecified severe protein-calorie malnutrition; G93.41 Metabolic encephalopathy; N39.0 Urinary tract infection, site not specified; D68.59 Other primary thrombophilia; E87.2 Acidosis; N17.9 Acute kidney failure, unspecified; B96.20 Unspecified Escherichia coli [E. coli] as the cause of diseases classified elsewhere; B96.5 Pseudomonas (aeruginosa) (mallei) (pseudomallei) as the cause of diseases classified elsewhere; F03.90 Unspecified dementia, unspecified severity, without behavioral disturbance, psychotic disturbance, mood disturbance, and anxiety; H66.91 Otitis media, unspecified, right ear; H70.93 Unspecified mastoiditis, bilateral; I12.9 Hypertensive chronic kidney disease with stage 1 through stage 4 chronic kidney disease, or unspecified chronic kidney disease; N18.2 Chronic kidney disease, stage 2 (mild); R29.6 Repeated falls; G31.9 Degenerative disease of nervous system, unspecified; K21.9 Gastro-esophageal reflux disease without esophagitis; K59.00 Constipation, unspecified; Z86.711 Personal history of pulmonary embolism; Z91.19 Patient's noncompliance with other medical treatment and regimen; R42 Dizziness and giddiness; Z91.81 History of falling; R26.81 Unsteadiness on feet; E83.9 Disorder of mineral metabolism, unspecified
CPT/HCPCS: 36415; 70030-TC; 73030; 74018; 83735; 84100; 84443; 85025; 92523; 92610; 93005; 97110; 97112; 97116; 97165; 97530; 97535; A4663; J2765; J3535; J7030; J8597

== ENCOUNTER 2019-09-14 11:19 | Emergency (ER) | payer MEDICARE, OTHER ==
[~2019-09-14] VITALS: Ht 170.2 cm; Wt 74.8 kg
[~2019-09-14 11:19] MED LIST changes: -ACET-2605 PO; +ACET325T53 PO; +CHOL100043 PO; -CRANBERRY; +DOCU100C36 PO; +HYDR-3326 PO; +Levofloxacin PO; -MECL-102 PO; +MENT71OI TOP; +NEOM10DR11 LEFT EAR; -VITAMIN D3 PO; +ZOLP5TAB8 PO
[2019-09-14 12:04] LABS: BASOPHILS # (AUTO) 0.1 K/uL (0.0-8.0); BASOPHILS % (AUTO) 0.9 % (0.0-2.0); EOSINOPHILS # (AUTO) 0.1 K/uL (0.0-0.7); EOSINOPHILS % (AUTO) 1.7 % (0.0-7.0); HEMATOCRIT 44.7 % (31.2-41.9); HEMOGLOBIN 14.7 g/dL (10.9-14.3); LYMPHOCYTES # (AUTO) 1.6 K/uL (20.0-40.0); LYMPHOCYTES % (AUTO) 20.9 % (20.5-51.5); MEAN CORPUSCULAR HEMOGLOBIN 30.2 uug (24.7-32.8); MEAN CORPUSCULAR HGB CONC 33 g/dL (32.3-35.6); MEAN CORPUSCULAR VOLUME 91.8 fL (75.5-95.3); MONOCYTES # (AUTO) 0.5 K/uL (2.0-10.0); MONOCYTES % (AUTO) 6.1 % (0.0-11.0); NEUTROPHILS # (AUTO) 5.5 K/uL (1.8-8.9); NEUTROPHILS % (AUTO) 70.4 % (38.5-71.5); PLATELET COUNT (AUTO) 423 K/uL (179-408); RED BLOOD CELL COUNT(AUTO) 4.87 MIL/uL (3.63-4.92); WHITE BLOOD COUNT (AUTO) 7.8 K/uL (3.8-11.8)
[2019-09-14] MEDS ORDERED: SERT25TA PO (12:09)
[2019-09-14 12:11] LABS: CARBON DIOXIDE 29 mmol/L (21-32); CHLORIDE 108 mmol/L (98-107); CREATININE 1.5 mg/dL (0.6-1.3); GLUCOSE 125 mg/dL (74-106); POTASSIUM 3.5 mmol/L (3.5-5.1); UREA NITROGEN, BLOOD 23 mg/dL (7-18)
[2019-09-14 12:17] LABS: ALANINE AMINOTRANSFERASE 33 U/L (14-59); ALKALINE PHOSPHATASE 65 U/L (50-136); ASPARTATE AMINOTRANSFERASE 17 U/L (15-37); BILIRUBIN,DIRECT 0.1 mg/dL (0.0-0.2); BILIRUBIN,TOTAL 0.5 mg/dL (0.2-1.0); TOTAL PROTEIN, SERUM 6.7 g/dL (6.4-8.2)
[2019-09-14] MEDS ORDERED: PROP20TA7 PO (12:47)
[2019-09-14] MEDS ORDERED: PANT40TA2 PO (12:47)
[2019-09-14] MEDS ORDERED: SENN-18 PO (12:47)
[2019-09-14] MEDS ORDERED: HYDR-4385 PO (12:47)
[2019-09-14] MEDS ORDERED: POLY17PO4 PO (12:47)
--- NOTE | 2019-09-14 13:22 | NUR ---
Patient discharged to home in stable conditon. Written and verbal after care instructions given. Patient and daughter verbalize understanding of instructions. pt daughter requesting to take the pt home. assissted pt with wheelchair to pt daughter.
[2019-09-14 13:24] VITALS: BP 162/81
--- NOTE | 2019-09-14 16:41 | NUR ---
call made into daughter, left message on voicemail marked urgent. patient needs to be observed because on eliquis.
--- NOTE | 2019-09-14 17:10 | NUR ---
Spoke with the daughter, she will be bringing her mother back in for observation
[2019-09-19] MEDS ORDERED: PROP20TA19 PO (13:49)
== END 2019-09-14 13:35 | disposition home or self-care (01) ==
LOC: ER 11:19
DX: S00.03XA Contusion of scalp, initial encounter (principal); I48.91 Unspecified atrial fibrillation; F17.200 Nicotine dependence, unspecified, uncomplicated; Z79.899 Other long term (current) drug therapy; Z79.2 Long term (current) use of antibiotics; W01.198A Fall on same level from slipping, tripping and stumbling with subsequent striking against other object, initial encounter; Y93.89 Activity, other specified; Y92.89 Other specified places as the place of occurrence of the external cause; Y99.8 Other external cause status
CPT/HCPCS: 36415; 70030-TC; 70450; 72125; 85025; 85730; 93005; A4663

== ENCOUNTER 2019-09-14 18:13 | Inpatient (IN) | payer MEDICARE, OTHER ==
[~2019-09-14] VITALS: Ht 170.2 cm; Wt 64.0 kg
[2019-09-14] MEDS ORDERED: HYDROCODONE BIT PO PRN (19:00)
[2019-09-14] MEDS ORDERED: ONDANSETRON 4 MG/2 ML VIAL IV PRN (19:00)
[2019-09-14] MEDS ORDERED: ZOLPIDEM 5 MG TABLET PO PRN (19:00)
[2019-09-14] MEDS ORDERED: [UNRECOGNIZED DRUG - OTHER] PO PRN (19:00)
[2019-09-14] MEDS ORDERED: ACETAMINOPHEN PO PRN (19:00)
[2019-09-14] MEDS ORDERED: MAGNESIUM HYDROXIDE 30 ML LIQUID UDC PO PRN (19:00)
[2019-09-14] MEDS ORDERED: ACETAMINOPHEN 325 MG TABLET PO PRN (19:00)
[2019-09-14 20:00] VITALS: BP 121/51
[2019-09-14] MEDS: DOCUSATE SODIUM 100 MG CAPSULE PO SCH (21:00)
[2019-09-14] MEDS: SENNOSIDES 1 TABLET PO SCH (21:00)
[2019-09-14] MEDS: ZOLPIDEM 5 MG TABLET PO PRN (21:21)
[2019-09-15] VITALS: BP 156/76
[2019-09-15 04:00] VITALS: BP 158/65
[2019-09-15] MEDS: Z GUARD REMEDY PASTE 57 GM TUBE TOP PRN (05:11)
[2019-09-15] MEDS: PANTOPRAZOLE SODIUM 40 MG TABLET.DR PO SCH (06:33)
[2019-09-15 08:15] LABS: BASOPHILS # (AUTO) 0.1 K/uL (0.0-8.0); HEMOGLOBIN 14.5 g/dL (10.9-14.3); MONOCYTES # (AUTO) 0.8 K/uL (2.0-10.0); PLATELET COUNT (AUTO) 395 K/uL (179-408)
[2019-09-15] MEDS: DONEPEZIL 5 MG TABLET PO SCH (08:16)
[2019-09-15] MEDS: SERTRALINE HCL 50 MG TABLET PO SCH (08:17)
[2019-09-15] MEDS: GABAPENTIN 100 MG CAPSULE PO SCH ×3 (08:17→17:16)
[2019-09-15] MEDS: CHOLECALCIFEROL 1,000 UNIT TABLET PO SCH (08:17)
[2019-09-15] MEDS: MIRALAX 17 GM POWD.PACK PO SCH (08:18)
[2019-09-15] MEDS: CYANOCOBALAMIN 1,000 MCG TABLET PO SCH (08:20)
[2019-09-15 08:22] LABS: BASOPHILS % (AUTO) 1.1 % (0.0-2.0); EOSINOPHILS # (AUTO) 0.3 K/uL (0.0-0.7); EOSINOPHILS % (AUTO) 2.7 % (0.0-7.0); HEMATOCRIT 43.7 % (31.2-41.9); LYMPHOCYTES # (AUTO) 2.2 K/uL (20.0-40.0); LYMPHOCYTES % (AUTO) 22.8 % (20.5-51.5); MEAN CORPUSCULAR HEMOGLOBIN 30.7 uug (24.7-32.8); MEAN CORPUSCULAR HGB CONC 33 g/dL (32.3-35.6); MEAN CORPUSCULAR VOLUME 92.2 fL (75.5-95.3); MONOCYTES % (AUTO) 8.4 % (0.0-11.0); NEUTROPHILS # (AUTO) 6.4 K/uL (1.8-8.9); RED BLOOD CELL COUNT(AUTO) 4.74 MIL/uL (3.63-4.92); WHITE BLOOD COUNT (AUTO) 9.8 K/uL (3.8-11.8)
[2019-09-15 08:33] LABS: CREATININE 1.2 mg/dL (0.6-1.3); MAGNESIUM 1.7 mg/dL (1.8-2.4); PHOSPHOROUS 2.8 mg/dL (2.5-4.9); POTASSIUM 3.6 mmol/L (3.5-5.1)
[2019-09-15] MEDS ORDERED: Medication Not On Formulary EA (Sertraline Hcl (Zoloft) 25 MG) PO SCH (09:00)
[2019-09-15] MEDS ORDERED: PROPRANOLOL HCL 20 MG TABLET PO SCH (09:00)
[2019-09-15] MEDS ORDERED: VITAMIN B12 1000 MCG PO SCH (09:00)
[2019-09-15] MEDS: VERAPAMIL SR 180 MG TABLET.SA PO SCH (09:24)
[2019-09-15 11:40] VITALS: BP 145/74
[2019-09-15 15:28] VITALS: BP 147/63
[2019-09-15] MEDS: HYDROCODONE/APAP 5-325MG TABLET PO PRN (18:21)
[2019-09-15] MEDS: DOCUSATE SODIUM 100 MG CAPSULE PO SCH (20:26)
[2019-09-15] MEDS: SENNOSIDES 1 TABLET PO SCH (20:26)
[2019-09-15 21:33] VITALS: BP 131/71
[2019-09-16] MEDS: Z GUARD REMEDY PASTE 57 GM TUBE TOP PRN (00:30)
[2019-09-16 01:09] VITALS: BP 150/76
[2019-09-16] MEDS: VERAPAMIL SR 180 MG TABLET.SA PO SCH ×2 (05:54→08:42)
[2019-09-16 06:22] LABS: BASOPHILS # (AUTO) 0.1 K/uL (0.0-8.0); BASOPHILS % (AUTO) 0.8 % (0.0-2.0); EOSINOPHILS # (AUTO) 0.3 K/uL (0.0-0.7); EOSINOPHILS % (AUTO) 2.4 % (0.0-7.0); HEMATOCRIT 43.4 % (31.2-41.9); HEMOGLOBIN 14.6 g/dL (10.9-14.3); LYMPHOCYTES # (AUTO) 2.4 K/uL (20.0-40.0); LYMPHOCYTES % (AUTO) 22.5 % (20.5-51.5); MEAN CORPUSCULAR HEMOGLOBIN 30.6 uug (24.7-32.8); MEAN CORPUSCULAR HGB CONC 34 g/dL (32.3-35.6); MEAN CORPUSCULAR VOLUME 90.9 fL (75.5-95.3); MONOCYTES # (AUTO) 0.8 K/uL (2.0-10.0); MONOCYTES % (AUTO) 7.7 % (0.0-11.0); NEUTROPHILS # (AUTO) 7.2 K/uL (1.8-8.9); NEUTROPHILS % (AUTO) 66.6 % (38.5-71.5); PLATELET COUNT (AUTO) 379 K/uL (179-408); RED BLOOD CELL COUNT(AUTO) 4.78 MIL/uL (3.63-4.92); WHITE BLOOD COUNT (AUTO) 10.8 K/uL (3.8-11.8)
[2019-09-16] MEDS: PANTOPRAZOLE SODIUM 40 MG TABLET.DR PO SCH (06:24)
[2019-09-16 06:28] LABS: CARBON DIOXIDE 24 mmol/L (21-32); CHLORIDE 106 mmol/L (98-107); CREATININE 1.4 mg/dL (0.6-1.3); GLUCOSE 82 mg/dL (74-106); POTASSIUM 3.7 mmol/L (3.5-5.1); UREA NITROGEN, BLOOD 24 mg/dL (7-18)
[2019-09-16] MEDS ORDERED: hydrALAZINE HCL 50 MG TABLET PO SCH (06:30)
[2019-09-16] MEDS ORDERED: ENALAPRILAT DIHYDRATE 1.25 MG/1 ML VIAL IV PRN (06:30)
[2019-09-16] MEDS: HYDROCODONE/APAP 5-325MG TABLET PO PRN (07:41)
[2019-09-16] MEDS: MIRALAX 17 GM POWD.PACK PO SCH (10:07)
[2019-09-16] MEDS: CYANOCOBALAMIN 1,000 MCG TABLET PO SCH (10:17)
[2019-09-16] MEDS: DONEPEZIL 5 MG TABLET PO SCH (10:17)
[2019-09-16] MEDS: CHOLECALCIFEROL 1,000 UNIT TABLET PO SCH (10:17)
[2019-09-16] MEDS: SERTRALINE HCL 50 MG TABLET PO SCH (10:17)
[2019-09-16 11:24] VITALS: BP 107/51
[2019-09-16 15:15] VITALS: BP 130/68
[2019-09-16] MEDS ORDERED: APIXABAN 5 MG TABLET PO SCH (17:00)
[2019-09-16] MEDS: DOCUSATE SODIUM 100 MG CAPSULE PO SCH ×2 (20:38→21:00)
[2019-09-16] MEDS: APIXABAN 5 MG TABLET PO SCH ×2 (20:39→21:00)
[2019-09-16] MEDS: SENNOSIDES 1 TABLET PO SCH ×2 (20:39→21:00)
[2019-09-16 20:44] VITALS: BP 151/61
[2019-09-16] MEDS: LORAZEPAM 2 MG/1 ML VIAL IV ONE ×2 (21:33→21:44)
[2019-09-17] MEDS: PANTOPRAZOLE SODIUM 40 MG TABLET.DR PO SCH (06:02)
[2019-09-17 06:19] VITALS: BP 135/64
[2019-09-17] MEDS: CYANOCOBALAMIN 1,000 MCG TABLET PO SCH ×2 (09:00→14:16)
[2019-09-17] MEDS: MIRALAX 17 GM POWD.PACK PO SCH ×2 (09:00→14:16)
[2019-09-17] MEDS: DONEPEZIL 10 MG TABLET PO SCH ×2 (09:00→14:14)
[2019-09-17] MEDS: PROPRANOLOL HCL 20 MG TABLET PO SCH ×2 (09:00→14:16)
[2019-09-17] MEDS: APIXABAN 5 MG TABLET PO SCH ×2 (09:00→21:05)
[2019-09-17] MEDS: SERTRALINE HCL 50 MG TABLET PO SCH ×2 (09:00→14:17)
[2019-09-17] MEDS: CHOLECALCIFEROL 1,000 UNIT TABLET PO SCH ×2 (09:00→14:17)
[2019-09-17] MEDS: VERAPAMIL SR 180 MG TABLET.SA PO SCH ×2 (09:00→14:15)
[2019-09-17 11:39] LABS: BASOPHILS # (AUTO) 0.1 K/uL (0.0-8.0); BASOPHILS % (AUTO) 0.6 % (0.0-2.0); EOSINOPHILS # (AUTO) 0.1 K/uL (0.0-0.7); EOSINOPHILS % (AUTO) 1.2 % (0.0-7.0); HEMATOCRIT 45.2 % (31.2-41.9); HEMOGLOBIN 15.2 g/dL (10.9-14.3); LYMPHOCYTES # (AUTO) 1.7 K/uL (20.0-40.0); LYMPHOCYTES % (AUTO) 16.6 % (20.5-51.5); MEAN CORPUSCULAR HEMOGLOBIN 30.6 uug (24.7-32.8); MEAN CORPUSCULAR HGB CONC 34 g/dL (32.3-35.6); MEAN CORPUSCULAR VOLUME 91.3 fL (75.5-95.3); MONOCYTES # (AUTO) 0.9 K/uL (2.0-10.0); MONOCYTES % (AUTO) 8.6 % (0.0-11.0); NEUTROPHILS # (AUTO) 7.7 K/uL (1.8-8.9); PLATELET COUNT (AUTO) 400 K/uL (179-408); RED BLOOD CELL COUNT(AUTO) 4.95 MIL/uL (3.63-4.92); WHITE BLOOD COUNT (AUTO) 10.5 K/uL (3.8-11.8)
[2019-09-17 11:49] LABS: CARBON DIOXIDE 26 mmol/L (21-32); CHLORIDE 107 mmol/L (98-107); CREATININE 1.5 mg/dL (0.6-1.3); GLUCOSE 95 mg/dL (74-106); MAGNESIUM 1.7 mg/dL (1.8-2.4); POTASSIUM 3.6 mmol/L (3.5-5.1); UREA NITROGEN, BLOOD 20 mg/dL (7-18)
[2019-09-17] MEDS: HYDROCODONE/APAP 5-325MG TABLET PO PRN (12:27)
[2019-09-17 12:35] VITALS: BP 152/80
[2019-09-17] MEDS: Z GUARD REMEDY PASTE 57 GM TUBE TOP PRN (15:32)
[2019-09-17 15:56] VITALS: BP 148/70
[2019-09-17] MEDS: DOCUSATE SODIUM 100 MG CAPSULE PO SCH (20:54)
[2019-09-17] MEDS: SENNOSIDES 1 TABLET PO SCH (20:55)
[2019-09-17] MEDS: ZOLPIDEM 5 MG TABLET PO PRN (20:55)
[2019-09-17] MEDS: Z GUARD REMEDY PASTE 57 GM TUBE TOP SCH (21:07)
[2019-09-17 21:19] VITALS: BP 141/90
[2019-09-18 05:10] VITALS: BP 149/93
[2019-09-18] MEDS: PANTOPRAZOLE SODIUM 40 MG TABLET.DR PO SCH (06:28)
[2019-09-18] MEDS ORDERED: FLEET ENEMA 133 ML BOTTLE RC PRN (08:30)
[2019-09-18] MEDS ORDERED: BISACODYL 10 MG SUPP.RECT RC PRN (08:30)
[2019-09-18] MEDS: CHOLECALCIFEROL 1,000 UNIT TABLET PO SCH (08:58)
[2019-09-18] MEDS: DONEPEZIL 10 MG TABLET PO SCH (08:58)
[2019-09-18] MEDS: SERTRALINE HCL 50 MG TABLET PO SCH (08:58)
[2019-09-18] MEDS: CYANOCOBALAMIN 1,000 MCG TABLET PO SCH (08:58)
[2019-09-18] MEDS: MIRALAX 17 GM POWD.PACK PO SCH (09:01)
[2019-09-18] MEDS: APIXABAN 5 MG TABLET PO SCH ×2 (09:01→20:38)
[2019-09-18] MEDS: VERAPAMIL SR 180 MG TABLET.SA PO SCH (09:01)
[2019-09-18] MEDS: Z GUARD REMEDY PASTE 57 GM TUBE TOP SCH ×2 (09:04→20:39)
[2019-09-18] MEDS: PROPRANOLOL HCL 20 MG TABLET PO SCH (09:11)
[2019-09-18] MEDS: HYDROCODONE/APAP 5-325MG TABLET PO PRN (09:20)
[2019-09-18 09:30] LABS: CARBON DIOXIDE 25 mmol/L (21-32); CHLORIDE 107 mmol/L (98-107); CREATININE 1.7 mg/dL (0.6-1.3); GLUCOSE 95 mg/dL (74-106); MAGNESIUM 1.8 mg/dL (1.8-2.4); POTASSIUM 3.6 mmol/L (3.5-5.1); UREA NITROGEN, BLOOD 24 mg/dL (7-18)
[2019-09-18 09:33] LABS: BASOPHILS # (AUTO) 0.1 K/uL (0.0-8.0); BASOPHILS % (AUTO) 0.8 % (0.0-2.0); EOSINOPHILS # (AUTO) 0.2 K/uL (0.0-0.7); EOSINOPHILS % (AUTO) 1.7 % (0.0-7.0); LYMPHOCYTES # (AUTO) 3.2 K/uL (20.0-40.0); LYMPHOCYTES % (AUTO) 26.2 % (20.5-51.5); MEAN CORPUSCULAR HEMOGLOBIN 30.6 uug (24.7-32.8); MEAN CORPUSCULAR HGB CONC 33 g/dL (32.3-35.6); MEAN CORPUSCULAR VOLUME 91.4 fL (75.5-95.3); MONOCYTES # (AUTO) 1.1 K/uL (2.0-10.0); MONOCYTES % (AUTO) 8.9 % (0.0-11.0); NEUTROPHILS # (AUTO) 7.7 K/uL (1.8-8.9); NEUTROPHILS % (AUTO) 62.4 % (38.5-71.5); PLATELET COUNT (AUTO) 432 K/uL (179-408); RED BLOOD CELL COUNT(AUTO) 5.48 MIL/uL (3.63-4.92); WHITE BLOOD COUNT (AUTO) 12.4 K/uL (3.8-11.8)
[2019-09-18] MEDS: IV NS 1000 ML 1,000 ML IV PRN ×2 (09:33→20:03)
[2019-09-18 09:42] LABS: HEMATOCRIT 50.1 % (31.2-41.9); HEMOGLOBIN 16.8 g/dL (10.9-14.3)
[2019-09-18 11:07] VITALS: BP 122/79
[2019-09-18 15:12] VITALS: BP 125/62
[2019-09-18] MEDS: SENNOSIDES 1 TABLET PO SCH (20:35)
[2019-09-18] MEDS: DOCUSATE SODIUM 100 MG CAPSULE PO SCH (20:35)
[2019-09-18 20:52] VITALS: BP 138/67
[2019-09-19 05:00] VITALS: BP 176/75
[2019-09-19] MEDS: IV NS 1000 ML 1,000 ML IV PRN (05:00)
[2019-09-19] MEDS: PANTOPRAZOLE SODIUM 40 MG TABLET.DR PO SCH (06:45)
[2019-09-19 06:53] LABS: CARBON DIOXIDE 25 mmol/L (21-32); CHLORIDE 108 mmol/L (98-107); CREATININE 1.2 mg/dL (0.6-1.3); GLUCOSE 77 mg/dL (74-106); POTASSIUM 3.4 mmol/L (3.5-5.1); UREA NITROGEN, BLOOD 20 mg/dL (7-18)
[2019-09-19 07:17] LABS: BASOPHILS # (AUTO) 0.1 K/uL (0.0-8.0); EOSINOPHILS # (AUTO) 0.2 K/uL (0.0-0.7)
[2019-09-19 07:29] LABS: BASOPHILS % (AUTO) 0.8 % (0.0-2.0); EOSINOPHILS % (AUTO) 2.9 % (0.0-7.0); LYMPHOCYTES # (AUTO) 1.9 K/uL (20.0-40.0); MEAN CORPUSCULAR HEMOGLOBIN 30.4 uug (24.7-32.8); MEAN CORPUSCULAR HGB CONC 33 g/dL (32.3-35.6); MEAN CORPUSCULAR VOLUME 91.8 fL (75.5-95.3); MONOCYTES # (AUTO) 0.7 K/uL (2.0-10.0); MONOCYTES % (AUTO) 9.3 % (0.0-11.0); NEUTROPHILS # (AUTO) 4.4 K/uL (1.8-8.9); PLATELET COUNT (AUTO) 343 K/uL (179-408); RED BLOOD CELL COUNT(AUTO) 4.86 MIL/uL (3.63-4.92); WHITE BLOOD COUNT (AUTO) 7.2 K/uL (3.8-11.8)
[2019-09-19 07:30] LABS: HEMATOCRIT 44.6 % (31.2-41.9); HEMOGLOBIN 14.8 g/dL (10.9-14.3)
[2019-09-19] MEDS: MIRALAX 17 GM POWD.PACK PO SCH (09:00)
[2019-09-19] MEDS: DONEPEZIL 10 MG TABLET PO SCH (09:00)
[2019-09-19] MEDS: CYANOCOBALAMIN 1,000 MCG TABLET PO SCH (09:01)
[2019-09-19] MEDS: CHOLECALCIFEROL 1,000 UNIT TABLET PO SCH (09:01)
[2019-09-19] MEDS: SERTRALINE HCL 50 MG TABLET PO SCH (09:01)
[2019-09-19] MEDS: Z GUARD REMEDY PASTE 57 GM TUBE TOP SCH (09:02)
[2019-09-19] MEDS: APIXABAN 5 MG TABLET PO SCH (09:07)
[2019-09-19] MEDS: VERAPAMIL SR 180 MG TABLET.SA PO SCH (09:09)
[2019-09-19] MEDS: PROPRANOLOL HCL 20 MG TABLET PO SCH (09:10)
[2019-09-19 11:30] VITALS: BP 152/77
[2019-09-19] MEDS ORDERED: POTASSIUM CHLORIDE 20 MEQ TAB.PRT.SR PO ONE (14:30)
[2019-09-19 15:18] VITALS: BP 152/70
== END 2019-09-19 16:40 | disposition home health service (06) | DRG 605 ==
LOC: ER 18:15 → TELE3 18:45 → MEDSURG3 09-16 09:40
PROVIDERS: ADMIT Family Medicine; ATTEND Family Medicine
PROC: 0DJD8ZZ Inspection of Lower Intestinal Tract, Via Natural or Artificial Opening Endoscopic (ICD-10-PCS; principal; 2019-09-16)
DX: S00.03XA Contusion of scalp, initial encounter (principal); N17.9 Acute kidney failure, unspecified; W01.0XXA Fall on same level from slipping, tripping and stumbling without subsequent striking against object, initial encounter; Y92.099 Unspecified place in other non-institutional residence as the place of occurrence of the external cause; D75.1 Secondary polycythemia; K64.9 Unspecified hemorrhoids; I48.91 Unspecified atrial fibrillation; G30.9 Alzheimer's disease, unspecified; F02.80 Dementia in other diseases classified elsewhere, unspecified severity, without behavioral disturbance, psychotic disturbance, mood disturbance, and anxiety; F32.9 Major depressive disorder, single episode, unspecified; E83.42 Hypomagnesemia; N18.3 Chronic kidney disease, stage 3 (moderate); K64.8 Other hemorrhoids; Z86.711 Personal history of pulmonary embolism; Z79.01 Long term (current) use of anticoagulants; G89.29 Other chronic pain; M54.9 Dorsalgia, unspecified; Z79.899 Other long term (current) drug therapy; D47.3 Essential (hemorrhagic) thrombocythemia
CPT/HCPCS: 36415; 83735; 84100; 85025; A4663; G0378; J2060; J3490; J7030